=== PATIENT | female | born 1980 | race Two or more races ===

== ENCOUNTER 2016-11-29 23:07 | Inpatient (IN) | payer MEDICAID ==
[~2016-11-29] VITALS: Ht 165.1 cm; Wt 104.3 kg
--- NOTE | 2016-11-29 23:43 | Emergency Room Report ---
History of Present Illness General Chief Complaint: Abdominal Pain Source: Patient Present Illness HPI 37YOF walk-in with RUQ pain for 2 days No assoc nausea, vomiting, diarrhea Known cholelithiasis Had same issue at [facility] ER "a few months ago." Negative sono at that time Did not followup with GenSurg Denies precipitating spicy food 2 days ago No other surgical history Also states s Allergies: Coded Allergies: PENICILLINS (Verified Allergy, Unknown, 11/29/16) Patient History Past Medical History: other - cholelithaisis Past Surgical History: none Pertinent Family History: none Social History: Denies: alcohol use, drug use, smoking Last Menstrual Period: October 02, 2016 Now: Yes Immunizations: UTD Reviewed Nursing Documentation: PMH: Agreed, PSxH: Agreed Nursing Documentation-PMH Past Medical History: No History, Except For Review of Systems All Other Systems: negative except mentioned in HPI Physical Exam Vital Signs Date Time Temp Pulse Resp B/P Pulse Ox O2 Delivery O2 Flow Rate FiO2 11/29/16 23:12 98.4 93 16 118/84 99 Room Air Sp02 EP Interpretation: reviewed, normal General Appearance: normal inspection, well appearing, no apparent distress, alert, GCS 15, non-toxic, obese Head: normocephalic, atraumatic Eyes: bilateral eye EOMI, bilateral eye PERRL ENT: normal ENT inspection, hearing grossly normal, normal voice Neck: normal inspection, full range of motion, supple, no bony tend Respiratory: normal inspection, lungs clear, normal breath sounds, no respiratory distress, no retraction, no wheezing Cardiovascular #1: regular rate, rhythm, no edema Gastrointestinal: normal inspection, normal bowel sounds, soft, no guarding, no hernia, other - +RUQ ttp. No rebound, guarding or distention Genitourinary: no CVA tenderness Musculoskeletal: normal inspection, back normal, normal range of motion, Tristin' s Sign negative Neurologic: normal inspection, alert, oriented x3, responsive, pony roll finisher III-XII nml as tested, motor strength/tone normal, speech normal Psychiatric: normal inspection, judgement/insight normal, mood/affect normal Skin: normal inspection, normal color, no rash Medical Decision Making Diagnostic Impression: Primary Impression: Abdominal pain Qualified Codes: R10.11 - Right upper quadrant pain Additional Impressions: Qualified Codes: Z3A.08 - 8 weeks gestation of Cholecystitis ER Course Labs: Leuks 13K. LFTs normal. ABd sono: cholelithiasis with + murphys sign Empiric Abx given Urine preg + Attempted to admit to Dr Mazariegos - stated not comfortably with patient as an inpatient, requested transfer Transfer initiated to [facility] at 145am. Spoke with Daisy. Transfer desk called at 4am that multiple attempts to transfer patient to [facility] were met with resistance. Leila said "8 weeks is not viable. They can manage the cholecystitis at [facility]." Transfer desk then tried to endorse to OB, but on-call physician also stated "8 weeks not viable." Would not accept patient for transfer At this time I endorsed patient to Dr Fiore for med/surg admission here Lory consulted at 515am Last Vital Signs Date Time Temp Pulse Resp B/P Pulse Ox O2 Delivery O2 Flow Rate FiO2 11/29/16 23:12 98.4 93 16 118/84 99 Room Air Status: improved Disposition: ADMITTED INPATIENT Condition: Serious Referrals: NOT CHOSEN IPA/,REFERRING (PCP) ELIZABETH SALDIVAR M.D. Nov 29, 2016 23:43
[2016-11-29] MEDS ORDERED: Morphine Sulfate 2mg/ml Inj IVP ONE (23:45)
[2016-11-29] MEDS ORDERED: Morphine Sulfate 4mg/ml Inj IVP ONE (23:45)
[2016-11-29 23:50] LABS: APPEARANCE,URINE CLEAR; KETONES,URINE NEGATIVE (NEGATIVE); LEUKOCYTE ESTERASE ,URINE NEGATIVE (NEGATIVE); NITRITE,URINE NEGATIVE (NEGATIVE); PH,URINE 7 (4.5-8.0); PROTEIN,URINE 1+ (NEGATIVE); UROBILINOGEN,URINE 1 MG/DL (0.0-1.0)
[2016-11-29 23:54] LABS: BACTERIA,URINE FEW /HPF; RBC,URINE 0-2 /HPF (0 - 2); SQUAMOUS EPITHELIAL CELL,UR MODERATE /LPF (NONE/OCC); WBC,URINE 0-2 /HPF (0 - 2)
[2016-11-29 23:55] LABS: CALCIUM OXALATE CRYSTALS,UR MODERATE /LPF
[2016-11-30] VITALS (10 sets, daily range): BP systolic 90–117; BP diastolic 55–76
[2016-11-30] LABS: BASOPHILS % (AUTO) 0.9 % (0.0-2.0); EOSINOPHILS % (AUTO) 3.6 % (0.0-3.0); LYMPHOCYTES % (AUTO) 26.5 % (20.0-45.0); MEAN CORPUSCULAR HEMOGLOBIN 29.4 PG (27.0-31.0); MEAN CORPUSCULAR HGB CONC 34.2 G/DL (32.0-36.0); MEAN CORPUSCULAR VOLUME 86 FL (80-99); MEAN PLATELET VOLUME 7.7 FL (6.5-10.1); MONOCYTES % (AUTO) 5.7 % (1.0-10.0); NEUTROPHILS % (AUTO) 63.3 % (45.0-75.0); PLATELET COUNT 279 K/UL (150-450); RED BLOOD COUNT 4.93 M/UL (4.20-5.40); RED CELL DISTRIBUTION WIDTH 13.3 % (11.6-14.8); WHITE BLOOD COUNT 13.6 K/UL (4.8-10.8)
[2016-11-30 00:20] LABS: ALANINE AMINOTRANSFERASE 10 U/L (3-33); ALBUMIN/GLOBULIN RATIO 1.1 (1.0-2.7); ANION GAP 11 (5-15); ASPARTATE AMINO TRANSFERASE 12 U/L (5-40); CALCIUM 9.6 mg/dL (8.6-10.2); CARBON DIOXIDE 25 mEQ/L (20-30); CHLORIDE 102 mEQ/L (98-107); GLOMERULAR FILTRATION RATE > 60 mL/min (>60); HEMOLYSIS 9; LIPASE 42 U/L (< 60); POTASSIUM 3.8 mEQ/L (3.4-4.9); SODIUM 138 mEQ/L (135-145); TOTAL PROTEIN 7.5 g/dL (6.6-8.7)
[2016-11-30] MEDS ORDERED: Clindamycin 900mg 50 ML IVPB ONE (00:30)
[2016-11-30] MEDS ORDERED: NKM (01:13)
[2016-11-30] MEDS ORDERED: Morphine Sulfate 2mg/ml Inj IVP PRN (06:45)
[2016-11-30] MEDS ORDERED: Mylanta II UD 30ml ORAL PRN (06:45)
[2016-11-30] MEDS ORDERED: Nitroglycerin Subl 0.4mg tab (Bottle Of 25) SL PRN (06:45)
[2016-11-30] MEDS ORDERED: Miralax 17gm pkt ORAL PRN (06:45)
[2016-11-30] MEDS: Aztreonam Inj 1 GM in NS 50 ML IVPB SCH ×3 (08:15→22:23)
[2016-11-30] MEDS: Heparin 5000 units/ml inj SUBQ SCH ×3 (08:17→22:26)
[2016-11-30] MEDS: Pantoprazole Inj IVP SCH (08:20)
--- NOTE | 2016-11-30 10:09 | Diagnostic Imaging Report ---
Indication:Abdominal pain Technique: Grayscale and duplex Doppler imaging of the abdomen performed. Comparison: None Findings: There is dense shadowing from the area of the gallbladder fossa suspicious for stones within a contracted gallbladder. Would confirm that the patient still has her gallbladder as occasionally the finding is on the basis of air in the duodenum. In addition the patient was tender over this region as there is a positive sonographic Bruce's per technologist. The liver, demonstrated part of the pancreas, aorta and IVC, both kidneys, spleen appear unremarkable. There is no biliary ductal dilatation identified. Doppler evaluation of the main portal vein shows patency. There is no ascites. No hydronephrosis seen. CBD is 2.7 mm. Impression: Suspicion of cholelithiasis with positive sonographic Bruce's. Acute cholecystitis may be present. [facility] has communicated the preliminary results to the Emergency Department. Their findings are largely concordant with this report.
[2016-11-30] MEDS: D5 1/2NS 1,000 ML IV SCH ×2 (10:50→18:43)
--- NOTE | 2016-11-30 12:12 | Consultation ---
History of Present Illness General Chief Complaint: Abdominal Pain Reason for Consultation: RUQ abdominal pain Present Illness HPI 36 year old female with known history of symptomatic cholelithiasis presented to ED with complaints of worsening RUQ abdominal pain, nausea, and emesis. patient states that a few months ago she had similar event and went to outside facility for evaluation and was diagnosed with symptomatic cholelithiasis. episode resolved and she was scheduled to follow up with surgeon as outpatient but did not. she has had intermittent episodes since but all resolve within hours and without intervention. Now she is currently 8 weeks and presented with similar event. States that 1-2 days ago she began to note pain in her RUQ and pain persisted. pain associated with multiple non blood emesis and intermittent nausea. pain described as cramping RUQ pain made worse with palpation and better with rest. she decided to come to [facility] ED for evaluation and was admitted for management. Surgery called to evaluate. In ED had Ultrasound which demonstrated cholelithiasis, normal CBD, normal LFT's, and leukocytosis of 13k. Allergies: Coded Allergies: PENICILLINS (Verified Allergy, Unknown, 11/29/16) Medication History Scheduled No Known Medications* (NKM - No Known Medications*), 0 ., (Reported) Patient History History Provided By: Patient, Medical Record, EMS Healthcare decision maker Resuscitation status Full Code Advanced Directive on File Past Medical/Surgical History Past Medical/Surgical History: (1) Cholelithiasis (2) (3) Abdominal pain (4) Cholecystitis Review of Systems All Other Systems: negative except mentioned in HPI Physical Exam General Appearance: no apparent distress, alert Lines, tubes and drains: peripheral HEENT: mucous membranes moist, PERRL Neck: normal inspection Respiratory/Chest: lungs clear, normal breath sounds, no respiratory distress, no accessory muscle use Cardiovascular/Chest: normal peripheral pulses, normal rate, regular rhythm Abdomen: soft, no organomegaly, no mass, tender, other - soft, no distended, tender in RUQ, no rebound, no guarding, no RLQ pain Extremities: normal inspection Skin Exam: normal pigmentation Neurologic: alert, oriented x 3 Last 24 Hour Vital Signs Date Time Temp Pulse Resp B/P Pulse Ox O2 Delivery O2 Flow Rate FiO2 11/30/16 08:00 97.9 76 20 110/71 98 Room Air 11/30/16 05:31 97.7 73 20 100/64 100 Room Air 11/30/16 05:14 98.1 66 19 95/55 100 Room Air 11/30/16 04:39 98.1 66 19 95/55 100 Room Air 11/30/16 02:34 98.1 72 22 117/76 99 Room Air 11/30/16 01:35 98.8 11/30/16 00:43 98.8 77 12 105/55 99 Room Air 11/29/16 23:12 98.4 93 16 118/84 99 Room Air Laboratory Tests Test 11/29/16 23:20 11/29/16 23:40 Urine Color Pale yellow Urine Appearance Clear Urine pH 7 (4.5-8.0) Urine Specific [place] 1.015 (1.005-1.035) Urine Protein 1+ (NEGATIVE) H Urine Glucose (UA) Negative (NEGATIVE) Urine Ketones Negative (NEGATIVE) Urine Occult Blood 1+ (NEGATIVE) H Urine Nitrite Negative (NEGATIVE) Urine Bilirubin Negative (NEGATIVE) Urine Urobilinogen 1 MG/DL (0.0-1.0) H Urine Leukocyte Esterase Negative (NEGATIVE) Urine RBC 0-2 /HPF (0 - 2) Urine WBC 0-2 /HPF (0 - 2) Urine Squamous Epithelial Cells Moderate /LPF (NONE/OCC) H Urine Calcium Oxalate Crystals Moderate /LPF (NONE) Urine Bacteria Few /HPF (NONE) Urine HCG, Qualitative Positive White Blood Count 13.6 K/UL (4.8-10.8) H Red Blood Count 4.93 M/UL (4.20-5.40) Hemoglobin 14.5 G/DL (12.0-16.0) Hematocrit 42.4 % (37.0-47.0) Mean Corpuscular Volume 86 FL (80-99) Mean Corpuscular Hemoglobin 29.4 PG (27.0-31.0) Mean Corpuscular Hemoglobin Concent 34.2 G/DL (32.0-36.0) Red Cell Distribution Width 13.3 % (11.6-14.8) Platelet Count 279 K/UL (150-450) Mean Platelet Volume 7.7 FL (6.5-10.1) Neutrophils (%) (Auto) 63.3 % (45.0-75.0) Lymphocytes (%) (Auto) 26.5 % (20.0-45.0) Monocytes (%) (Auto) 5.7 % (1.0-10.0) Eosinophils (%) (Auto) 3.6 % (0.0-3.0) H Basophils (%) (Auto) 0.9 % (0.0-2.0) Sodium Level 138 mEQ/L (135-145) Potassium Level 3.8 mEQ/L (3.4-4.9) Chloride Level 102 mEQ/L (98-107) Carbon Dioxide Level 25 mEQ/L (20-30) Anion Gap 11 (5-15) Blood Urea Nitrogen 12 mg/dL (7-23) Creatinine 1.0 mg/dL (0.5-0.9) H Estimat Glomerular Filtration Rate > 60 mL/min (>60) Glucose Level 110 mg/dL (74-106) H Calcium Level 9.6 mg/dL (8.6-10.2) Total Bilirubin 0.3 mg/dL (0.0-1.2) Aspartate Amino Transf (AST/SGOT) 12 U/L (5-40) Alanine Aminotransferase (ALT/SGPT) 10 U/L (3-33) Alkaline Phosphatase 78 U/L (35-104) Total Protein 7.5 g/dL (6.6-8.7) Albumin 4.0 g/dL (3.5-5.2) Globulin 3.5 g/dL Albumin/Globulin Ratio 1.1 (1.0-2.7) Lipase 42 U/L (< 60) Height (Feet): 5 Height (Inches): 5.00 Weight (Pounds): 230 Medications Current Medications Medications (Trade) Dose Ordered Sig/[place] Route PRN Reason Start Time Stop Time Status Last Admin Dose Admin Acetaminophen 650 mg 650 mg Q4H PRN ORAL Mild Pain/Temp > 100.5 11/30/16 08:45 12/30/16 08:44 11/30/16 10:58 Al Hydroxide/Mg Hydroxide (Mylanta II) 30 ml Q6H PRN ORAL dyspepsia 11/30/16 06:45 12/30/16 06:44 Aztreonam/Sodium Chloride (Azactam/Sodium Chloride) 50 ml @ 100 mls/hr EVERY 8 HOURS IVPB 11/30/16 08:00 12/07/16 07:59 11/30/16 08:15 Dextrose (Dextrose 50%) STAT PRN IV Hypoglycemia 11/30/16 06:45 12/30/16 06:44 Dextrose/Sodium Chloride (D5 0.45% NS) 1,000 ml @ 125 mls/hr Q8H IV 11/30/16 10:30 12/30/16 10:29 11/30/16 10:50 Diphenhydramine HCl (Benadryl) 25 mg Q6H PRN ORAL Itching/Pruritis 11/30/16 06:45 12/30/16 06:44 Heparin Sodium (Porcine) (Heparin 5000 units/ml) 5,000 units EVERY 12 HOURS SUBQ 11/30/16 09:00 12/30/16 08:59 Morphine Sulfate (Morphine Sulfate) 2 mg Q4H PRN IVP severe Pain (Pain Scale 7-10) 11/30/16 06:45 12/07/16 06:44 Nitroglycerin (Ntg) 0.4 mg Q5M X 3 DOSES PRN SL Prn Chest Pain 11/30/16 06:45 12/30/16 06:44 Ondansetron HCl (Zofran) 4 mg Q6H PRN IVP Nausea & Vomiting 11/30/16 06:45 12/30/16 06:44 Pantoprazole 40 mg 40 mg DAILY IVP 11/30/16 09:00 12/30/16 08:59 Polyethylene Glycol (Miralax) 17 gm HSPRN PRN ORAL Constipation 11/30/16 06:45 12/30/16 06:44 Assessment/Plan Problem List: (1) Cholecystitis Assessment & Plan: 36F 8 weeks with episode of acute cholecystitis. currently afebrile, HD Stable, leukocytosis 13k, normal lft's, ultrasound with stones and contracted gb. on exam has RUQ tenderness when palpated and no tenderness in remainder of abdomen. Continue with medical management of acute cholecystitis NPO IV fluids IV Abx will monitor exam and trend labs. ICD Codes: K81.9 - Cholecystitis, unspecified SNOMED: 85830381, [id number] Status: stable Dominic Vargas Nov 30, 2016 12:12
--- NOTE | 2016-11-30 13:26 | GI Initial Consult Note ---
History of Present Illness General Date patient seen: Nov 30, 2016 Time patient seen: 10:00 Reason for Hospitalization: Abdominal Pain Referring physician: VIOLET MOORE Reason for Consultation: RUQ abdominal pain Present Illness HPI 37YOF walk-in with RUQ pain for 2 days No assoc nausea, vomiting, diarrhea Known cholelithiasis Had same issue at [facility] ER "a few months ago." Negative sono at that time Did not followup with GenSurg Denies precipitating spicy food 2 days ago No other surgical history. GI Consult. HPI as noted above. GI consulted for abdominal pain. Pt seen on floor, awake A&Ox4 NAD with no active s/x of N/V/D c/o of RUQ abdominal pain presents today with elevated WBC 13.6. Patient states she had one episode of emesis last night. Denied any hematemesis or coffee grounds. HGC +. Procedure: US ABD Complete Indication:Abdominal pain Impression: Suspicion of cholelithiasis with positive sonographic Bruce's. Acute cholecystitis may be present. Home Meds Reported Medications No Known Medications* (NKM - No Known Medications*) ., 0 ., 0 Refills 11/30/16 Allergies: Coded Allergies: PENICILLINS (Verified Allergy, Unknown, 11/29/16) Patient History History Provided By: Patient, Medical Record PMH Narrative Past Medical History: other - cholelithiasis Past Surgical History: none Pertinent Family History: none Social History: Denies: alcohol use, drug use, smoking Last Menstrual Period: October 02, 2016 Now: Yes Immunizations: UTD Reviewed Nursing Documentation: PMH: Agreed, PSxH: Agreed Nursing Documentation-PMH Past Medical History: No History, Except For Social History: Denies: alcohol use, drug use, other, smoking Review of Systems All Other Systems: negative except mentioned in HPI Physical Exam Vital Signs Date Time Temp Pulse Resp B/P Pulse Ox O2 Delivery O2 Flow Rate FiO2 11/29/16 23:12 98.4 93 16 118/84 99 Room Air Sp02 EP Interpretation: reviewed Labs Laboratory Tests Test 11/29/16 23:20 11/29/16 23:40 Urine Color Pale yellow Urine Appearance Clear Urine pH 7 (4.5-8.0) Urine Specific [place] 1.015 (1.005-1.035) Urine Protein 1+ (NEGATIVE) H Urine Glucose (UA) Negative (NEGATIVE) Urine Ketones Negative (NEGATIVE) Urine Occult Blood 1+ (NEGATIVE) H Urine Nitrite Negative (NEGATIVE) Urine Bilirubin Negative (NEGATIVE) Urine Urobilinogen 1 MG/DL (0.0-1.0) H Urine Leukocyte Esterase Negative (NEGATIVE) Urine RBC 0-2 /HPF (0 - 2) Urine WBC 0-2 /HPF (0 - 2) Urine Squamous Epithelial Cells Moderate /LPF (NONE/OCC) H Urine Calcium Oxalate Crystals Moderate /LPF (NONE) Urine Bacteria Few /HPF (NONE) Urine HCG, Qualitative Positive White Blood Count 13.6 K/UL (4.8-10.8) H Red Blood Count 4.93 M/UL (4.20-5.40) Hemoglobin 14.5 G/DL (12.0-16.0) Hematocrit 42.4 % (37.0-47.0) Mean Corpuscular Volume 86 FL (80-99) Mean Corpuscular Hemoglobin 29.4 PG (27.0-31.0) Mean Corpuscular Hemoglobin Concent 34.2 G/DL (32.0-36.0) Red Cell Distribution Width 13.3 % (11.6-14.8) Platelet Count 279 K/UL (150-450) Mean Platelet Volume 7.7 FL (6.5-10.1) Neutrophils (%) (Auto) 63.3 % (45.0-75.0) Lymphocytes (%) (Auto) 26.5 % (20.0-45.0) Monocytes (%) (Auto) 5.7 % (1.0-10.0) Eosinophils (%) (Auto) 3.6 % (0.0-3.0) H Basophils (%) (Auto) 0.9 % (0.0-2.0) Sodium Level 138 mEQ/L (135-145) Potassium Level 3.8 mEQ/L (3.4-4.9) Chloride Level 102 mEQ/L (98-107) Carbon Dioxide Level 25 mEQ/L (20-30) Anion Gap 11 (5-15) Blood Urea Nitrogen 12 mg/dL (7-23) Creatinine 1.0 mg/dL (0.5-0.9) H Estimat Glomerular Filtration Rate > 60 mL/min (>60) Glucose Level 110 mg/dL (74-106) H Calcium Level 9.6 mg/dL (8.6-10.2) Total Bilirubin 0.3 mg/dL (0.0-1.2) Aspartate Amino Transf (AST/SGOT) 12 U/L (5-40) Alanine Aminotransferase (ALT/SGPT) 10 U/L (3-33) Alkaline Phosphatase 78 U/L (35-104) Total Protein 7.5 g/dL (6.6-8.7) Albumin 4.0 g/dL (3.5-5.2) Globulin 3.5 g/dL Albumin/Globulin Ratio 1.1 (1.0-2.7) Lipase 42 U/L (< 60) General Appearance: well appearing, no apparent distress, alert Head: normocephalic EENT: normal ENT inspection Neck: supple Respiratory: chest non-tender, normal breath sounds, no respiratory distress Cardiovascular: normal peripheral pulses, normal rate, regular rhythm Gastrointestinal: normal inspection, non tender, soft, normal bowel sounds Rectal: normal exam, normal rectal tone, deferred Genitourinary: normal inspection Musculoskeletal: normal inspection, back normal, digits/nails normal Neurologic: normal inspection, alert, oriented x3, responsive Psychiatric: normal inspection, judgement/insight normal, memory normal Skin: normal inspection, normal color, no rash, warm/dry Lymphatic: normal inspection, no adenopathy Current Medications Current Medications Medications (Trade) Dose Ordered Sig/[place] Route PRN Reason Start Time Stop Time Status Last Admin Dose Admin Acetaminophen 650 mg 650 mg Q4H PRN ORAL Mild Pain/Temp > 100.5 11/30/16 08:45 12/30/16 08:44 11/30/16 10:58 Al Hydroxide/Mg Hydroxide (Mylanta II) 30 ml Q6H PRN ORAL dyspepsia 11/30/16 06:45 12/30/16 06:44 Aztreonam/Sodium Chloride (Azactam/Sodium Chloride) 50 ml @ 100 mls/hr EVERY 8 HOURS IVPB 11/30/16 08:00 12/07/16 07:59 11/30/16 08:15 Dextrose (Dextrose 50%) STAT PRN IV Hypoglycemia 11/30/16 06:45 12/30/16 06:44 Dextrose/Sodium Chloride (D5 0.45% NS) 1,000 ml @ 125 mls/hr Q8H IV 8/7/17 10:30 12/30/16 10:29 11/30/16 10:50 Diphenhydramine HCl (Benadryl) 25 mg Q6H PRN ORAL Itching/Pruritis 11/30/16 06:45 12/30/16 06:44 Heparin Sodium (Porcine) (Heparin 5000 units/ml) 5,000 units EVERY 12 HOURS SUBQ 11/30/16 09:00 12/30/16 08:59 Morphine Sulfate (Morphine Sulfate) 2 mg Q4H PRN IVP severe Pain (Pain Scale 7-10) 11/30/16 06:45 12/07/16 06:44 Nitroglycerin (Ntg) 0.4 mg Q5M X 3 DOSES PRN SL Prn Chest Pain 11/30/16 06:45 12/30/16 06:44 Ondansetron HCl (Zofran) 4 mg Q6H PRN IVP Nausea & Vomiting 11/30/16 06:45 12/30/16 06:44 Pantoprazole 40 mg 40 mg DAILY IVP 11/30/16 09:00 12/30/16 08:59 Polyethylene Glycol (Miralax) 17 gm HSPRN PRN ORAL Constipation 11/30/16 06:45 12/30/16 06:44 GI: Plan Problems: (1) Cholecystitis (2) Cholelithiasis (3) Abdominal pain (4) Plan abdominal U/S reviewed >> Suspicion of cholelithiasis with positive sonographic Bruce's. Acute cholecystitis may be present. HGC positive surgical recs >> Continue with medical management of acute cholecystitis NPO + IV fluids IV Abx zofran prn pain mgmt ppi fu labs Discussed with Dr. Knott. Thank you for referring this patient, we will follow. Tracy Whipple N.P. Nov 30, 2016 13:26
--- NOTE | 2016-11-30 16:36 | General Progress Note ---
Progress Note Progress Note Surgery: afternoon re-evaluation: patient states pain improving. slowly decreasing. nausea improving. no emesis. states she feels better. ambulatory. good urine output. +flatus. no BM. exam with less RUQ tenderness. will continue with conservative management of cholecystitis. NPO, IV fluids, IV Abx. Dominic Vargas Nov 30, 2016 16:35
--- NOTE | 2016-11-30 17:11 | History and Physical ---
History of Present Illness General Date patient seen: Nov 30, 2016 Reason for Hospitalization: Abdominal Pain Present Illness HPI 37 year old female with Known cholelithiasis walk-in to ER with RUQ pain for 2 days. she was diagnosed to have cholecystitis. She was found to be as well. ER physician attempted to transfer her to a hospital with an active MARIE department. He was told that she wouldn't need that. The ER panel physician refused to take her as well. I was asked by ER physician to admit her. Allergies: Coded Allergies: PENICILLINS (Verified Allergy, Unknown, 11/29/16) Medication History Scheduled No Known Medications* (NKM - No Known Medications*), 0 ., (Reported) Patient History Healthcare decision maker Resuscitation status Full Code Advanced Directive on File Past Medical/Surgical History Past Medical/Surgical History: (1) Cholecystitis (2) Cholelithiasis Review of Systems All Other Systems: negative except mentioned in HPI Physical Exam General Appearance: WD/WN Lines, tubes and drains: peripheral, central line HEENT: normocephalic, atraumatic Neck: non-tender, normal alignment, limited range of motion Respiratory/Chest: lungs clear Breasts: no masses Cardiovascular/Chest: normal peripheral pulses, normal rate, no JVD Genitourinary/Rectal: normal genital exam Extremities: normal range of motion Last 24 Hour Vital Signs Date Time Temp Pulse Resp B/P Pulse Ox O2 Delivery O2 Flow Rate FiO2 11/30/16 16:00 97.7 67 20 112/74 98 Room Air 11/30/16 14:39 70 90/55 11/30/16 12:00 97.5 70 20 98/65 98 Room Air 11/30/16 11:57 97.9 11/30/16 08:00 97.9 76 20 110/71 98 Room Air 11/30/16 05:31 97.7 73 20 100/64 100 Room Air 11/30/16 05:14 98.1 66 19 95/55 100 Room Air 11/30/16 04:39 98.1 66 19 95/55 100 Room Air 11/30/16 02:34 98.1 72 22 117/76 99 Room Air 11/30/16 01:35 98.8 11/30/16 00:43 98.8 77 12 105/55 99 Room Air 11/29/16 23:12 98.4 93 16 118/84 99 Room Air Laboratory Tests Test 11/29/16 23:20 11/29/16 23:40 Urine Color Pale yellow Urine Appearance Clear Urine pH 7 (4.5-8.0) Urine Specific [place] 1.015 (1.005-1.035) Urine Protein 1+ (NEGATIVE) H Urine Glucose (UA) Negative (NEGATIVE) Urine Ketones Negative (NEGATIVE) Urine Occult Blood 1+ (NEGATIVE) H Urine Nitrite Negative (NEGATIVE) Urine Bilirubin Negative (NEGATIVE) Urine Urobilinogen 1 MG/DL (0.0-1.0) H Urine Leukocyte Esterase Negative (NEGATIVE) Urine RBC 0-2 /HPF (0 - 2) Urine WBC 0-2 /HPF (0 - 2) Urine Squamous Epithelial Cells Moderate /LPF (NONE/OCC) H Urine Calcium Oxalate Crystals Moderate /LPF (NONE) Urine Bacteria Few /HPF (NONE) Urine HCG, Qualitative Positive White Blood Count 13.6 K/UL (4.8-10.8) H Red Blood Count 4.93 M/UL (4.20-5.40) Hemoglobin 14.5 G/DL (12.0-16.0) Hematocrit 42.4 % (37.0-47.0) Mean Corpuscular Volume 86 FL (80-99) Mean Corpuscular Hemoglobin 29.4 PG (27.0-31.0) Mean Corpuscular Hemoglobin Concent 34.2 G/DL (32.0-36.0) Red Cell Distribution Width 13.3 % (11.6-14.8) Platelet Count 279 K/UL (150-450) Mean Platelet Volume 7.7 FL (6.5-10.1) Neutrophils (%) (Auto) 63.3 % (45.0-75.0) Lymphocytes (%) (Auto) 26.5 % (20.0-45.0) Monocytes (%) (Auto) 5.7 % (1.0-10.0) Eosinophils (%) (Auto) 3.6 % (0.0-3.0) H Basophils (%) (Auto) 0.9 % (0.0-2.0) Sodium Level 138 mEQ/L (135-145) Potassium Level 3.8 mEQ/L (3.4-4.9) Chloride Level 102 mEQ/L (98-107) Carbon Dioxide Level 25 mEQ/L (20-30) Anion Gap 11 (5-15) Blood Urea Nitrogen 12 mg/dL (7-23) Creatinine 1.0 mg/dL (0.5-0.9) H Estimat Glomerular Filtration Rate > 60 mL/min (>60) Glucose Level 110 mg/dL (74-106) H Calcium Level 9.6 mg/dL (8.6-10.2) Total Bilirubin 0.3 mg/dL (0.0-1.2) Aspartate Amino Transf (AST/SGOT) 12 U/L (5-40) Alanine Aminotransferase (ALT/SGPT) 10 U/L (3-33) Alkaline Phosphatase 78 U/L (35-104) Total Protein 7.5 g/dL (6.6-8.7) Albumin 4.0 g/dL (3.5-5.2) Globulin 3.5 g/dL Albumin/Globulin Ratio 1.1 (1.0-2.7) Lipase 42 U/L (< 60) Height (Feet): 5 Height (Inches): 5.00 Weight (Pounds): 230 Medications Current Medications Medications (Trade) Dose Ordered Sig/[place] Route PRN Reason Start Time Stop Time Status Last Admin Dose Admin Acetaminophen 650 mg 650 mg Q4H PRN ORAL Mild Pain/Temp > 100.5 11/30/16 08:45 12/30/16 08:44 11/30/16 10:58 Al Hydroxide/Mg Hydroxide (Mylanta II) 30 ml Q6H PRN ORAL dyspepsia 11/30/16 06:45 12/30/16 06:44 Aztreonam/Sodium Chloride (Azactam/Sodium Chloride) 50 ml @ 100 mls/hr EVERY 8 HOURS IVPB 11/30/16 08:00 12/07/16 07:59 11/30/16 15:33 Dextrose (Dextrose 50%) STAT PRN IV Hypoglycemia 11/30/16 06:45 12/30/16 06:44 Dextrose/Sodium Chloride (D5 0.45% NS) 1,000 ml @ 125 mls/hr Q8H IV 11/30/16 10:30 12/30/16 10:29 11/30/16 10:50 Diphenhydramine HCl (Benadryl) 25 mg Q6H PRN ORAL Itching/Pruritis 11/30/16 06:45 12/30/16 06:44 Heparin Sodium (Porcine) (Heparin 5000 units/ml) 5,000 units EVERY 12 HOURS SUBQ 11/30/16 09:00 12/30/16 08:59 Morphine Sulfate (Morphine Sulfate) 2 mg Q4H PRN IVP severe Pain (Pain Scale 7-10) 11/30/16 06:45 12/07/16 06:44 Nitroglycerin (Ntg) 0.4 mg Q5M X 3 DOSES PRN SL Prn Chest Pain 11/30/16 06:45 12/30/16 06:44 Ondansetron HCl (Zofran) 4 mg Q6H PRN IVP Nausea & Vomiting 11/30/16 06:45 12/30/16 06:44 Pantoprazole 40 mg 40 mg DAILY IVP 11/30/16 09:00 12/30/16 08:59 Polyethylene Glycol (Miralax) 17 gm HSPRN PRN ORAL Constipation 11/30/16 06:45 12/30/16 06:44 Assessment/Plan Problem List: (1) Cholecystitis ICD Codes: K81.9 - Cholecystitis, unspecified SNOMED: 25867729, [id number] (2) ICD Codes: Z34.90 - Encounter for supervision of normal , unspecified , unspecified trimester SNOMED: 31079142 Qualifiers: Qualified Codes: Z3A.08 - 8 weeks gestation of (3) Penicillin allergy ICD Codes: Z88.0 - Allergy status to penicillin SNOMED: 04213626 Assessment/Plan NPO IV antibiotics Surgery and GENERATION TECHNOLOGIST evaluation PCN allergy VIOLET MOORE Nov 30, 2016 17:11
[2016-11-30] MEDS ORDERED: D5 1/2NS 1,000 ML IV SCH (17:40)
--- NOTE | 2016-11-30 17:53 | Infectious Diseases Prog Note ---
Infectious Disease Consult Infectious Disease Consult Infectious Disease Consult INFECTIOUS DISEASE CONSULTATION DATE OF CONSULTATION: CONSULTING PHYSICIAN: Jesus Lopez M.D., MTM&H, [facility] Covering for Dr. Best REFERRING PHYSICIAN: Dr. Juma Fiore REASON FOR CONSULTATION: Acute cholecystitis in , with h/o PCN allergy HISTORY OF PRESENT ILLNESS: 36 y/o female in 1st trimester of (LMP [id number]), h/o cholelithiasis admitted with acute cholecystitis. c/o RUQ pain x2 days, w/o nausea, emesis, eructation, diarrhea, dark stools, coffee grounds. evaluated at [facility] ER earlier this year with similar complaints , but reportedly had negative u/s at that time. She did not f/u with gen surg since that ER evaluation. no other surgical history. Ate spicy food prior to onset. denies any recent travel. denies any recent abx use. She reports remote h/o facial edema w/o respiratory compromise to PCN, and she can't recall receiving any cephalosporins or augmentin. She is in the first trimester of . This afternoon her pain is decreased, minimal nausea, no emesis, is ambulatory, good urine outpatient, + flatus, no BM. She is receiving IV fluids , is NPO, and given her PCN allergy was started on empiric IV aztreonam. PAST MEDICAL HISTORY: , prior h/o cholecystitis about 2 months ago, cholelithiasis Past Surgical History: none ALLERGIES: PCN-->facial edema w/o respiratory compromise. patient cannot recall previously having received cephalosporins or augmentin ANTIBIOTICS: Aztreonam IV 1gm q8hr, D#1 Home and hospitalized medications reviewed. SOCIAL HISTORY: , denies current etoh, is a non smoker, denies illicit drug use FAMILY HISTORY: Noncontributory REVIEW OF SYSTEMS: 11 point ROS negative except for that mentioned in HPI above. PHYSICAL EXAM: VITAL SIGNS: reviewed. afebrile, not hypotensive, not tachycardic. GEN: awake, alert, non toxic appearing HEENT: Mild pale conjunctiva. oral mucosa dry, pharynx w/o exudate or effusion. No icterus. Head normocephalic, neck supple. no conjunctival injection. NECK: No cervical LAD CHEST: Clear to auscultation bilaterally, poor inspiratory HEART: S1 and S2, no murmurs, no rubs. ABDOMEN: soft, non tender, non distended, normoactive bowel sounds, obese, uterine fundus palpated. minimal RUQ pain to palpation. no robound, no guarding. EXTREMITIES: No cyanosis, no clubbing, no edema. NEUROLOGIC: Awake, alert, no focal neurologic motor deficits. : deferred LYMPH: no LAD RECTAL: deferred SKIN: no rash LABORATORY AND DIAGNOSTIC DATA: WBC 13.6, hgb 14.5, plt 279, N 63%, eos 3.6%, AEC 490 Na 138, K 3.8, Cl 102, CO2 25, BUN 12, SCr 1.0, gluc 110 Ca 9.6, prot 7.5, alb 4.0, tili 0.3, alk phos 78, AST 12, ALT 10, lipase normal at 42 u/a 1.015/1+ protein/1+ blood/neg ketone/neg LE/0 WBC/0/ RBC/moderate epis HCG + RADIOLOGY: Patient : ALYSIA TALBOT Referring Physician: ELIZABETH SALDIVAR M.D. ID Number: [id number] Service Date: 11/29/16 : 1980 Report Date: 11/30/16 Gender: F Accession No.: [id number] Location: Procedure: US ABD Complete Indication:Abdominal pain Technique: Grayscale and duplex Doppler imaging of the abdomen performed. Comparison: None Findings: There is dense shadowing from the area of the gallbladder fossa suspicious for stones within a contracted gallbladder. Would confirm that the patient still has her gallbladder as occasionally the finding is on the basis of air in the duodenum. In addition the patient was tender over this region as there is a positive sonographic Bruce's per technologist. The liver, demonstrated part of the pancreas, aorta and IVC, both kidneys, spleen appear unremarkable. There is no biliary ductal dilatation identified. Doppler evaluation of the main portal vein shows patency. There is no ascites. No hydronephrosis seen. CBD is 2.7 mm. Impression: Suspicion of cholelithiasis with positive sonographic Bruce's. Acute cholecystitis may be present. [facility] has communicated the preliminary results to the Emergency Department. Their findings are largely concordant with this report. ASSESSMENT AND PLAN 36 y/o female, 1st trimester gravid, with acute cholecystitis that seems to be responding to medical mgmt with NPO, IV fluids, and empiric IV aztreonam. Her imaging is consistent with underlying cholelithiasis. Most common bacterial causes of cholecystitis include the aerobic GNRs E coli, Klebsiella, Proteus, and less likely the aerobic GPC Enterococcus. Also could include anaerobes to include Bacteroides, which specifically is unlikely to be covered by clindamycin. While flagyl is not absolutely contraindicated in 1st trimester for severe infections, she seems to be responding to current mgmt so unless she has worsening of her clinical picture, I think we can continue present mgmt. ASSESSMENT: 1) Acute cholecystitis in 2) Leukocytosis w/o left shift 3) Afebrile 4) Hemodynamically stable 5) PCN allergy PLAN: --continue IV aztreonam 1gm q8hr D#1 --if exam worsens, develops fevers, or leukocytosis worsens, would add on IV flagyl. --monitor CBC --monitor temp curve --monitor exam -- screening infection tests: HIV, urine GC/chlamydia NAAT, HBV and HCV screening, urine culture. remainder can be performed in non acute setting. --NPO Thank you for this consultation. Will continue to follow. Covering for Dr. Best, please call me with questions, Jesus Lopez M.D. Nov 30, 2016 17:53
[2016-12-01] MEDS: D5 1/2NS 1,000 ML IV SCH ×2 (02:22→11:45)
[2016-12-01 03:53] VITALS: BP 111/64
[2016-12-01] MEDS: Aztreonam Inj 1 GM in NS 50 ML IVPB SCH ×2 (05:20→14:46)
[2016-12-01 08:00] VITALS: BP 116/69
[2016-12-01] MEDS: Heparin 5000 units/ml inj SUBQ SCH (08:47)
[2016-12-01] MEDS: Pantoprazole Inj IVP SCH (08:47)
[2016-12-01 09:39] LABS: EOSINOPHILS % (AUTO) 4.5 % (0.0-3.0); MEAN CORPUSCULAR HEMOGLOBIN 29.1 PG (27.0-31.0); MEAN CORPUSCULAR HGB CONC 33.3 G/DL (32.0-36.0); MEAN CORPUSCULAR VOLUME 87 FL (80-99); MEAN PLATELET VOLUME 7.7 FL (6.5-10.1); NEUTROPHILS % (AUTO) 61.6 % (45.0-75.0); PLATELET COUNT 267 K/UL (150-450); RED BLOOD COUNT 4.52 M/UL (4.20-5.40); RED CELL DISTRIBUTION WIDTH 13.3 % (11.6-14.8); WHITE BLOOD COUNT 11.2 K/UL (4.8-10.8)
[2016-12-01 10:13] LABS: ALANINE AMINOTRANSFERASE 8 U/L (3-33); AMYLASE 59 U/L (10-110); ANION GAP 11 (5-15); ASPARTATE AMINO TRANSFERASE 11 U/L (5-40); CALCIUM 8.5 mg/dL (8.6-10.2); CARBON DIOXIDE 21 mEQ/L (20-30); CHLORIDE 105 mEQ/L (98-107); CREATININE 0.7 mg/dL (0.5-0.9); GLOMERULAR FILTRATION RATE > 60 mL/min (>60); HEMOLYSIS 1; LIPASE 41 U/L (< 60); POTASSIUM 4.1 mEQ/L (3.4-4.9); SODIUM 137 mEQ/L (135-145); TOTAL PROTEIN 6.8 g/dL (6.6-8.7)
[2016-12-01 12:00] VITALS: BP 117/72
--- NOTE | 2016-12-01 13:55 | General Surgery Progress Note ---
General Surgery-Progress Note Subjective Symptoms: improved, pain absent, tolerating diet, passing flatus, BM Additional Comments patient seen and examined at bedside. states pain has resolved. no n/v/f/c. tolerating diet. +flatus and BM. no complaints. states she wants to go home. Objective Last 24 Hour Vital Signs Date Time Temp Pulse Resp B/P Pulse Ox O2 Delivery O2 Flow Rate FiO2 12/01/16 12:00 98.2 69 20 117/72 95 Room Air 12/01/16 08:00 97.7 69 20 116/69 96 Room Air 12/01/16 03:53 98.6 80 18 111/64 95 Room Air 11/30/16 23:33 98.2 72 16 113/73 94 Room Air 11/30/16 21:00 97.9 71 19 109/65 100 Room Air 11/30/16 16:00 97.7 67 20 112/74 98 Room Air 11/30/16 14:39 70 90/55 I&O Intake and Output 11/30/16 12/01/16 19:00 07:00 Intake Total 1250 ml Balance 1250 ml Intake IV Total 1250 ml # Voids 4 3 Cardiovascular: RSR Respiratory: clear Abdomen: soft, non-tender, present bowel sounds Extremities: no tenderness Laboratory Tests Test 11/30/16 22:30 12/01/16 09:25 Chlamydia trachomatis RNA Pending White Blood Count 11.2 K/UL (4.8-10.8) H Red Blood Count 4.52 M/UL (4.20-5.40) Hemoglobin 13.1 G/DL (12.0-16.0) Hematocrit 39.4 % (37.0-47.0) Mean Corpuscular Volume 87 FL (80-99) Mean Corpuscular Hemoglobin 29.1 PG (27.0-31.0) Mean Corpuscular Hemoglobin Concent 33.3 G/DL (32.0-36.0) Red Cell Distribution Width 13.3 % (11.6-14.8) Platelet Count 267 K/UL (150-450) Mean Platelet Volume 7.7 FL (6.5-10.1) Neutrophils (%) (Auto) 61.6 % (45.0-75.0) Lymphocytes (%) (Auto) 28.0 % (20.0-45.0) Monocytes (%) (Auto) 5.0 % (1.0-10.0) Eosinophils (%) (Auto) 4.5 % (0.0-3.0) H Basophils (%) (Auto) 1.0 % (0.0-2.0) Activated Partial Thromboplast Time 29 SEC (23-33) Sodium Level 137 mEQ/L (135-145) Potassium Level 4.1 mEQ/L (3.4-4.9) Chloride Level 105 mEQ/L (98-107) Carbon Dioxide Level 21 mEQ/L (20-30) Anion Gap 11 (5-15) Blood Urea Nitrogen 8 mg/dL (7-23) Creatinine 0.7 mg/dL (0.5-0.9) Estimat Glomerular Filtration Rate > 60 mL/min (>60) Glucose Level 94 mg/dL (74-106) Calcium Level 8.5 mg/dL (8.6-10.2) L Total Bilirubin 0.4 mg/dL (0.0-1.2) Aspartate Amino Transf (AST/SGOT) 11 U/L (5-40) Alanine Aminotransferase (ALT/SGPT) 8 U/L (3-33) Alkaline Phosphatase 73 U/L (35-104) Total Protein 6.8 g/dL (6.6-8.7) Albumin 3.5 g/dL (3.5-5.2) Globulin 3.3 g/dL Albumin/Globulin Ratio 1.0 (1.0-2.7) Amylase Level 59 U/L (10-110) Lipase 41 U/L (< 60) Plan Problems: (1) Cholecystitis Assessment & Plan: 36F 8 weeks with episode of acute cholecystitis vs biliary colic. currently afebrile, HD Stable, leukocytosis 11k (trending down) , normal lft's, ultrasound with stones and contracted gb. Initially with RUQ tenderness which has since resolved. no n/v/f/c. Exam benign. tolerating diet. Diet as tolerated Ambulate and OOB patient states that she wants to go home today and given quick resolution of symptoms I believe would be safe. I explained to patient that there is a high risk that she can have another episode during and that if she has pain again she needs to seek medical attention. Needs to consider cholecystectomy during surgery if has episode of acute cholecystitis. This episode is more of a biliary colic given course. Patient states she will follow up with her WATER CONSERVATIONIST soon after discharge for evaluation and pre care. Given inflammatory process more than infectious, no further need for Abx. Can follow up with me as an outpatient. Dominic Vargas Dec 01, 2016 13:55
--- NOTE | 2016-12-01 13:56 | General Surgery Progress Note ---
General Surgery-Progress Note Subjective Symptoms: improved, pain absent, tolerating diet, passing flatus, BM Additional Comments patient seen and examined at bedside. doing well. pain resolved. tolerating diet. ambulatory. no complaints. wants to go home today . Objective Last 24 Hour Vital Signs Date Time Temp Pulse Resp B/P Pulse Ox O2 Delivery O2 Flow Rate FiO2 12/01/16 12:00 98.2 69 20 117/72 95 Room Air 12/01/16 08:00 97.7 69 20 116/69 96 Room Air 12/01/16 03:53 98.6 80 18 111/64 95 Room Air 11/30/16 23:33 98.2 72 16 113/73 94 Room Air 11/30/16 21:00 97.9 71 19 109/65 100 Room Air 11/30/16 16:00 97.7 67 20 112/74 98 Room Air 11/30/16 14:39 70 90/55 I&O Intake and Output 11/30/16 12/01/16 19:00 07:00 Intake Total 1250 ml Balance 1250 ml Intake IV Total 1250 ml # Voids 4 3 Cardiovascular: RSR Respiratory: clear Abdomen: soft, non-tender, present bowel sounds Extremities: no tenderness Laboratory Tests Test 11/30/16 22:30 12/01/16 09:25 Chlamydia trachomatis RNA Pending White Blood Count 11.2 K/UL (4.8-10.8) H Red Blood Count 4.52 M/UL (4.20-5.40) Hemoglobin 13.1 G/DL (12.0-16.0) Hematocrit 39.4 % (37.0-47.0) Mean Corpuscular Volume 87 FL (80-99) Mean Corpuscular Hemoglobin 29.1 PG (27.0-31.0) Mean Corpuscular Hemoglobin Concent 33.3 G/DL (32.0-36.0) Red Cell Distribution Width 13.3 % (11.6-14.8) Platelet Count 267 K/UL (150-450) Mean Platelet Volume 7.7 FL (6.5-10.1) Neutrophils (%) (Auto) 61.6 % (45.0-75.0) Lymphocytes (%) (Auto) 28.0 % (20.0-45.0) Monocytes (%) (Auto) 5.0 % (1.0-10.0) Eosinophils (%) (Auto) 4.5 % (0.0-3.0) H Basophils (%) (Auto) 1.0 % (0.0-2.0) Activated Partial Thromboplast Time 29 SEC (23-33) Sodium Level 137 mEQ/L (135-145) Potassium Level 4.1 mEQ/L (3.4-4.9) Chloride Level 105 mEQ/L (98-107) Carbon Dioxide Level 21 mEQ/L (20-30) Anion Gap 11 (5-15) Blood Urea Nitrogen 8 mg/dL (7-23) Creatinine 0.7 mg/dL (0.5-0.9) Estimat Glomerular Filtration Rate > 60 mL/min (>60) Glucose Level 94 mg/dL (74-106) Calcium Level 8.5 mg/dL (8.6-10.2) L Total Bilirubin 0.4 mg/dL (0.0-1.2) Aspartate Amino Transf (AST/SGOT) 11 U/L (5-40) Alanine Aminotransferase (ALT/SGPT) 8 U/L (3-33) Alkaline Phosphatase 73 U/L (35-104) Total Protein 6.8 g/dL (6.6-8.7) Albumin 3.5 g/dL (3.5-5.2) Globulin 3.3 g/dL Albumin/Globulin Ratio 1.0 (1.0-2.7) Amylase Level 59 U/L (10-110) Lipase 41 U/L (< 60) Plan Problems: (1) Cholecystitis Assessment & Plan: 36F 8 weeks with episode of acute cholecystitis vs biliary colic. currently afebrile, HD Stable, leukocytosis 11k (trending down) , normal lft's, ultrasound with stones and contracted gb. Initially with RUQ tenderness which has since resolved. no n/v/f/c. Exam benign. tolerating diet. Diet as tolerated Ambulate and OOB patient states that she wants to go home today and given quick resolution of symptoms I believe would be safe. I explained to patient that there is a high risk that she can have another episode during and that if she has pain again she needs to seek medical attention. Needs to consider cholecystectomy during surgery if has episode of acute cholecystitis. This episode is more of a biliary colic given course. Patient states she will follow up with her [employer] ATTENDANT soon after discharge for evaluation and pre anaid care. Given inflammatory process more than infectious, no further need for Abx. Can follow up with me as an outpatient. Dominic Vargas Dec 01, 2016 13:56
--- NOTE | 2016-12-01 14:13 | Pulmonology Progress Note ---
Assessment/Plan Assessment/Plan ASSESSMENT abdominal pain RUQ possible acute cholecystitis in likely biliary colic cholelithiasis PLAN OF CARE MS floor abdominal US +Suspicion of cholelithiasis with positive sonographic Bruce's. Acute cholecystitis may be present. GI, ID and surgery follow as per surgery defer surgical procedures at this time, continue with medical management of acute cholecystitis GI cleared fro dc diet advanced, tolerated a/emetic prn pain mgmt initially on IV abx routine screen - negative for HIV, syphilis, Chlamydia and viral hepatitis ID followed no need for abx as per ID ID cleared for dc surgery followed per surgery given short time of resolution of symptoms, likely biliary colic patient was counseled if symptoms recur, seek medical attention patient follows with [facility] for care Per surgery , given inflammatory process more than infectious, no further need for abx. Subjective Allergies: Coded Allergies: PENICILLINS (Verified Allergy, Unknown, 11/29/16) Subjective abdominal pain subsided leukocytosis trending down afebrile tolerated diet wanted to go home Objective Last 24 Hour Vital Signs Date Time Temp Pulse Resp B/P Pulse Ox O2 Delivery O2 Flow Rate FiO2 12/01/16 12:00 98.2 69 20 117/72 95 Room Air 12/01/16 08:00 97.7 69 20 116/69 96 Room Air 12/01/16 03:53 98.6 80 18 111/64 95 Room Air 11/30/16 23:33 98.2 72 16 113/73 94 Room Air 11/30/16 21:00 97.9 71 19 109/65 100 Room Air 11/30/16 16:00 97.7 67 20 112/74 98 Room Air 11/30/16 14:39 70 90/55 Intake and Output 11/30/16 12/01/16 19:00 07:00 Intake Total 1250 ml Balance 1250 ml Intake IV Total 1250 ml # Voids 4 3 General Appearance: other - A/A/O x 4 obese [place] speaking female in NAD HEENT: normocephalic, atraumatic, anicteric, mucous membranes moist Respiratory/Chest: chest wall non-tender, lungs clear, normal breath sounds, no respiratory distress, no accessory muscle use Cardiovascular: normal peripheral pulses, normal rate, regular rhythm Abdomen: normal bowel sounds, soft, non tender - Genitourinary: normal external genitalia Extremities: no edema, pedal pulses normal Skin: no rash Neurologic/Psychiatric: therapist radiation II-XII grossly normal, no motor/sensory deficits, oriented x 3, responsive Lymphatic: no neck adenopathy Musculoskeletal: normal muscle bulk Laboratory Tests 11/30/16 22:30: Chlamydia trachomatis RNA [Pending] 12/01/16 09:25: White Blood Count 11.2H, Red Blood Count 4.52, Hemoglobin 13.1, Hematocrit 39.4 , Mean Corpuscular Volume 87, Mean Corpuscular Hemoglobin 29.1, Mean Corpuscular Hemoglobin Concent 33.3, Red Cell Distribution Width 13.3, Platelet Count 267, Mean Platelet Volume 7.7, Neutrophils (%) (Auto) 61.6, Lymphocytes (% ) (Auto) 28.0, Monocytes (%) (Auto) 5.0, Eosinophils (%) (Auto) 4.5H, Basophils (%) (Auto) 1.0, Activated Partial Thromboplast Time 29, Sodium Level 137, Potassium Level 4.1, Chloride Level 105, Carbon Dioxide Level 21, Anion Gap 11, Blood Urea Nitrogen 8, Creatinine 0.7, Estimat Glomerular Filtration Rate > 60, Glucose Level 94, Calcium Level 8.5L, Total Bilirubin 0.4, Aspartate Amino Transf (AST/SGOT) 11, Alanine Aminotransferase (ALT/SGPT) 8, Alkaline Phosphatase 73, Total Protein 6.8, Albumin 3.5, Globulin 3.3, Albumin/Globulin Ratio 1.0, Amylase Level 59, Lipase 41 Current Medications Medications (Trade) Dose Ordered Sig/Indio Route PRN Reason Start Time Stop Time Status Last Admin Dose Admin Acetaminophen 650 mg 650 mg Q4H PRN ORAL Mild Pain/Temp > 100.5 11/30/16 08:45 12/30/16 08:44 11/30/16 10:58 Al Hydroxide/Mg Hydroxide (Mylanta II) 30 ml Q6H PRN ORAL dyspepsia 11/30/16 06:45 12/30/16 06:44 Aztreonam/Sodium Chloride (Azactam/Sodium Chloride) 50 ml @ 100 mls/hr EVERY 8 HOURS IVPB 11/30/16 08:00 12/07/16 07:59 12/01/16 05:20 Dextrose (Dextrose 50%) STAT PRN IV Hypoglycemia 11/30/16 06:45 12/30/16 06:44 Dextrose/Sodium Chloride (D5 0.45% NS) 1,000 ml @ 125 mls/hr Q8H IV 11/30/16 10:30 12/30/16 10:29 12/01/16 11:45 Diphenhydramine HCl (Benadryl) 25 mg Q6H PRN ORAL Itching/Pruritis 11/30/16 06:45 12/30/16 06:44 Heparin Sodium (Porcine) (Heparin 5000 units/ml) 5,000 units EVERY 12 HOURS SUBQ 11/30/16 09:00 12/30/16 08:59 Morphine Sulfate (Morphine Sulfate) 2 mg Q4H PRN IVP severe Pain (Pain Scale 7-10) 11/30/16 06:45 12/07/16 06:44 Nitroglycerin (Ntg) 0.4 mg Q5M X 3 DOSES PRN SL Prn Chest Pain 11/30/16 06:45 12/30/16 06:44 Ondansetron HCl (Zofran) 4 mg Q6H PRN IVP Nausea & Vomiting 11/30/16 06:45 12/30/16 06:44 11/30/16 22:39 Pantoprazole 40 mg 40 mg DAILY IVP 11/30/16 09:00 12/30/16 08:59 Polyethylene Glycol (Miralax) 17 gm HSPRN PRN ORAL Constipation 11/30/16 06:45 12/30/16 06:44 Alma Gibbs NP (Vanchtein) Dec 01, 2016 14:13
[2016-12-01] MEDS ORDERED: REGLAN5 MG ORAL (14:51)
--- NOTE | 2016-12-01 15:03 | Infectious Diseases Prog Note ---
Assessment/Plan Assessment/Plan 36 y/o female, 1st trimester gravid, with mild acute cholecystitis that has resolved medical mgmt including 48 hrs empiric IV aztreonam. Not systemically ill, does not have ascending cholangitis. screening for HIV/hepatitis/rpr is all negative. Her reported PCN allergy described as mild facial edema w/o anaphylaxis and w/o respiratory compromise. Don't have viable oral non beta lactam abx option for her, since clindamycin doesn't cover aerobic GNRs, but as this is an inflammatory condition rather than infection, and this has been an uncomplicated course, I anticipate she will do well off antiobiotics. ASSESSMENT: 1) Acute cholecystitis in , resolved 2) Leukocytosis w/o left shift, resolving 3) Afebrile 4) Hemodynamically stable 5) PCN allergy , not anaphylaxis 6) routine screen negative for HIV, chlamydia, syphilis, and viral hepatitis. PLAN: --d/c IV aztreonam D#2 --okay for discharge from ID perspective. Subjective Constitutional: Reports: no symptoms Respiratory: Reports: no symptoms Cardiovascular: Reports: no symptoms Gastrointestinal/Abdominal: Reports: no symptoms Skin: Reports: no symptoms Musculoskeletal: Reports: no symptoms Allergies: Coded Allergies: PENICILLINS (Verified Allergy, Unknown, 11/29/16) Subjective has been afebrile throughout. comfortable, tolerating diet, passing flatus, very anxious to go home. Objective Vital Signs Last 24 Hour Vital Signs Date Time Temp Pulse Resp B/P Pulse Ox O2 Delivery O2 Flow Rate FiO2 12/01/16 12:00 98.2 69 20 117/72 95 Room Air 12/01/16 08:00 97.7 69 20 116/69 96 Room Air 12/01/16 03:53 98.6 80 18 111/64 95 Room Air 11/30/16 23:33 98.2 72 16 113/73 94 Room Air 11/30/16 21:00 97.9 71 19 109/65 100 Room Air 11/30/16 16:00 97.7 67 20 112/74 98 Room Air Height (Feet): 5 Height (Inches): 5.00 Weight (Pounds): 230 Objective GEN: awake, alert, non toxic appearing HEENT: Mild pale conjunctiva. oral mucosa dry, pharynx w/o exudate or effusion. No icterus. Head normocephalic, neck supple. no conjunctival injection. NECK: No cervical LAD CHEST: Clear to auscultation bilaterally, poor inspiratory HEART: S1 and S2, no murmurs, no rubs. ABDOMEN: soft, non tender, non distended, normoactive bowel sounds, obese, uterine fundus palpated. no RUQ pain to palpation. no rebound, no guarding. EXTREMITIES: No cyanosis, no clubbing, no edema. NEUROLOGIC: Awake, alert, no focal neurologic motor deficits. : deferred LYMPH: no LAD RECTAL: deferred SKIN: no rash Laboratory Tests Test 11/30/16 22:30 12/01/16 09:25 Chlamydia trachomatis RNA Pending White Blood Count 11.2 K/UL (4.8-10.8) H Red Blood Count 4.52 M/UL (4.20-5.40) Hemoglobin 13.1 G/DL (12.0-16.0) Hematocrit 39.4 % (37.0-47.0) Mean Corpuscular Volume 87 FL (80-99) Mean Corpuscular Hemoglobin 29.1 PG (27.0-31.0) Mean Corpuscular Hemoglobin Concent 33.3 G/DL (32.0-36.0) Red Cell Distribution Width 13.3 % (11.6-14.8) Platelet Count 267 K/UL (150-450) Mean Platelet Volume 7.7 FL (6.5-10.1) Neutrophils (%) (Auto) 61.6 % (45.0-75.0) Lymphocytes (%) (Auto) 28.0 % (20.0-45.0) Monocytes (%) (Auto) 5.0 % (1.0-10.0) Eosinophils (%) (Auto) 4.5 % (0.0-3.0) H Basophils (%) (Auto) 1.0 % (0.0-2.0) Activated Partial Thromboplast Time 29 SEC (23-33) Sodium Level 137 mEQ/L (135-145) Potassium Level 4.1 mEQ/L (3.4-4.9) Chloride Level 105 mEQ/L (98-107) Carbon Dioxide Level 21 mEQ/L (20-30) Anion Gap 11 (5-15) Blood Urea Nitrogen 8 mg/dL (7-23) Creatinine 0.7 mg/dL (0.5-0.9) Estimat Glomerular Filtration Rate > 60 mL/min (>60) Glucose Level 94 mg/dL (74-106) Calcium Level 8.5 mg/dL (8.6-10.2) L Total Bilirubin 0.4 mg/dL (0.0-1.2) Aspartate Amino Transf (AST/SGOT) 11 U/L (5-40) Alanine Aminotransferase (ALT/SGPT) 8 U/L (3-33) Alkaline Phosphatase 73 U/L (35-104) Total Protein 6.8 g/dL (6.6-8.7) Albumin 3.5 g/dL (3.5-5.2) Globulin 3.3 g/dL Albumin/Globulin Ratio 1.0 (1.0-2.7) Amylase Level 59 U/L (10-110) Lipase 41 U/L (< 60) Current Medications Medications (Trade) Dose Ordered Sig/Indio Route PRN Reason Start Time Stop Time Status Last Admin Dose Admin Acetaminophen 650 mg 650 mg Q4H PRN ORAL Mild Pain/Temp > 100.5 11/30/16 08:45 12/30/16 08:44 11/30/16 10:58 Al Hydroxide/Mg Hydroxide (Mylanta II) 30 ml Q6H PRN ORAL dyspepsia 11/30/16 06:45 12/30/16 06:44 Aztreonam/Sodium Chloride (Azactam/Sodium Chloride) 50 ml @ 100 mls/hr EVERY 8 HOURS IVPB 11/30/16 08:00 12/07/16 07:59 12/01/16 05:20 Dextrose (Dextrose 50%) STAT PRN IV Hypoglycemia 11/30/16 06:45 12/30/16 06:44 Dextrose/Sodium Chloride (D5 0.45% NS) 1,000 ml @ 125 mls/hr Q8H IV 11/30/16 10:30 12/30/16 10:29 12/01/16 11:45 Diphenhydramine HCl (Benadryl) 25 mg Q6H PRN ORAL Itching/Pruritis 11/30/16 06:45 12/30/16 06:44 Heparin Sodium (Porcine) (Heparin 5000 units/ml) 5,000 units EVERY 12 HOURS SUBQ 11/30/16 09:00 12/30/16 08:59 Morphine Sulfate (Morphine Sulfate) 2 mg Q4H PRN IVP severe Pain (Pain Scale 7-10) 11/30/16 06:45 12/07/16 06:44 Nitroglycerin (Ntg) 0.4 mg Q5M X 3 DOSES PRN SL Prn Chest Pain 11/30/16 06:45 12/30/16 06:44 Ondansetron HCl (Zofran) 4 mg Q6H PRN IVP Nausea & Vomiting 11/30/16 06:45 12/30/16 06:44 11/30/16 22:39 Pantoprazole 40 mg 40 mg DAILY IVP 11/30/16 09:00 12/30/16 08:59 Polyethylene Glycol (Miralax) 17 gm HSPRN PRN ORAL Constipation 11/30/16 06:45 12/30/16 06:44 Jesus Lopez M.D. Dec 01, 2016 15:03
[2016-12-01] MEDS ORDERED: D5 1/2NS 1000ml IV ONE (15:23)
--- NOTE | 2016-12-01 15:46 | GI Progress Note ---
Assessment/Plan Problems: (1) Abdominal pain ICD Codes: R10.9 - Unspecified abdominal pain SNOMED: 47072363 (2) Cholelithiasis ICD Codes: K80.20 - Calculus of gallbladder without cholecystitis without obstruction SNOMED: 154300273 Status: doing well, stable Status Narrative Discussed with Dr. Knott. Assessment/Plan abdominal U/S reviewed >> Suspicion of cholelithiasis with positive sonographic Bruce's. Acute cholecystitis may be present. HGC positive surgical recs >> defer surgical procedures at this time, continue with medical management of acute cholecystitis clear from GI for discharge adv diet zofran prn pain mgmt ppi fu labs Subjective Subjective abdominal pain resolving wants to go home Objective Last 24 Hour Vital Signs Date Time Temp Pulse Resp B/P Pulse Ox O2 Delivery O2 Flow Rate FiO2 12/01/16 12:00 98.2 69 20 117/72 95 Room Air 12/01/16 08:00 97.7 69 20 116/69 96 Room Air 12/01/16 03:53 98.6 80 18 111/64 95 Room Air 11/30/16 23:33 98.2 72 16 113/73 94 Room Air 11/30/16 21:00 97.9 71 19 109/65 100 Room Air 11/30/16 16:00 97.7 67 20 112/74 98 Room Air Intake and Output 11/30/16 12/01/16 19:00 07:00 Intake Total 1250 ml Balance 1250 ml Intake IV Total 1250 ml # Voids 4 3 Laboratory Tests Test 11/30/16 22:30 12/01/16 09:25 Chlamydia trachomatis RNA Pending White Blood Count 11.2 K/UL (4.8-10.8) H Red Blood Count 4.52 M/UL (4.20-5.40) Hemoglobin 13.1 G/DL (12.0-16.0) Hematocrit 39.4 % (37.0-47.0) Mean Corpuscular Volume 87 FL (80-99) Mean Corpuscular Hemoglobin 29.1 PG (27.0-31.0) Mean Corpuscular Hemoglobin Concent 33.3 G/DL (32.0-36.0) Red Cell Distribution Width 13.3 % (11.6-14.8) Platelet Count 267 K/UL (150-450) Mean Platelet Volume 7.7 FL (6.5-10.1) Neutrophils (%) (Auto) 61.6 % (45.0-75.0) Lymphocytes (%) (Auto) 28.0 % (20.0-45.0) Monocytes (%) (Auto) 5.0 % (1.0-10.0) Eosinophils (%) (Auto) 4.5 % (0.0-3.0) H Basophils (%) (Auto) 1.0 % (0.0-2.0) Activated Partial Thromboplast Time 29 SEC (23-33) Sodium Level 137 mEQ/L (135-145) Potassium Level 4.1 mEQ/L (3.4-4.9) Chloride Level 105 mEQ/L (98-107) Carbon Dioxide Level 21 mEQ/L (20-30) Anion Gap 11 (5-15) Blood Urea Nitrogen 8 mg/dL (7-23) Creatinine 0.7 mg/dL (0.5-0.9) Estimat Glomerular Filtration Rate > 60 mL/min (>60) Glucose Level 94 mg/dL (74-106) Calcium Level 8.5 mg/dL (8.6-10.2) L Total Bilirubin 0.4 mg/dL (0.0-1.2) Aspartate Amino Transf (AST/SGOT) 11 U/L (5-40) Alanine Aminotransferase (ALT/SGPT) 8 U/L (3-33) Alkaline Phosphatase 73 U/L (35-104) Total Protein 6.8 g/dL (6.6-8.7) Albumin 3.5 g/dL (3.5-5.2) Globulin 3.3 g/dL Albumin/Globulin Ratio 1.0 (1.0-2.7) Amylase Level 59 U/L (10-110) Lipase 41 U/L (< 60) Height (Feet): 5 Height (Inches): 5.00 Weight (Pounds): 230 General Appearance: no apparent distress, alert Cardiovascular: normal rate Respiratory/Chest: normal breath sounds, no respiratory distress Abdominal Exam: normal bowel sounds, non tender, soft Extremities: normal range of motion Tracy Whipple N.P. Dec 01, 2016 15:46
--- NOTE | 2016-12-03 17:34 | Discharge Summary ---
Discharge Summary Hospital Course Date of Admission Nov 30, 2016 at 01:22 Date of Discharge Dec 01, 2016 at 15:24 Admitting Diagnosis cholecystitis HPI Radha Pride is a 36 year old female who was admitted on Nov 30, 2016 at 01:22 for Cholecystitis Hospital Course [id number] Discharge Discharge Disposition Patient was discharged to Home (01) Discharge Diagnoses: Yoli Nugent NP Dec 03, 2016 17:34
--- NOTE | 2016-12-03 22:01 | Discharge Summary 2 SIG ---
DATE OF ADMISSION: 11/30/2016 DATE OF DISCHARGE: 12/01/2016 CONSULTANTS: 1. Dominic Vargas M.D. 2. Butch Knott M.D. 3. Jesus Lopez M.D. BRIEF HOSPITAL COURSE: The patient is a 36-year-old female, with known cholelithiasis, walked in to ED complaining of right upper quadrant pain for two days. She had the same symptoms a few months ago where she went to [facility] ED and at that time, had negative sonogram, but with no follow up with GI. She presented to ED complaining of abdominal pain with no associated vomiting or diarrhea. Urine was positive. The patient was 8 weeks . She was attempted transfer to the hospital with [facility] department. However, the patient was not accepted. The patient was then admitted to medical floor for acute cholecystitis and . She was placed on NPO. Abdominal ultrasound showed cholelithiasis with acute cholecystitis. She was given intravenous aztreonam. She underwent evaluation by the surgery and advised to continue with medical management of acute cholecystitis. screening was done. The patient was negative for human immunodeficiency virus, syphilis, chlamydia and hepatitis. Abdominal pain resolved. Diet was advanced. She received 48 hours empiric intravenous antibiotic treatment with aztreonam. The patient was not systemically ill and did not present with ascending cholangitis. She was advised risk of having recurrence of symptoms during and was advised need to seek medical attention. Need to consider cholecystectomy. The patient stated that she will follow up with her OB Gynecology soon after discharge. Symptoms are inflammatory process more than infectious and no further need for antibiotic treatment. She was tolerating diet well and WBC down trended. The patient was then discharged home. FINAL DIAGNOSES: 1. Possible acute cholecystitis. 2. . 3. Likely biliary colic. 4. Cholelithiasis. DISPOSITION: The patient was discharged home. DISCHARGE MEDICATIONS: Refer to medication list. FOLLOWUP: Follow up with OB Gynecology as early as possible. Pam Fiore M.D. I have been assigned to dictate discharge summary on this account and I was not involved in the patient's management. Yoli Nugent N.P. DR: AZUCENA JOB#: [id number] CC: SARA
== END 2016-12-01 15:24 | disposition home or self-care (01) | DRG 566 ==
LOC: EMR 23:31 → UNDOADMIN 11-30 01:22 → 4E 11-30 01:22 → EDBEDREQ 11-30 01:32
DX: O99.611 Diseases of the digestive system complicating pregnancy, first trimester (principal); K80.00 Calculus of gallbladder with acute cholecystitis without obstruction; Z3A.08 8 weeks gestation of pregnancy; Z88.0 Allergy status to penicillin; D72.829 Elevated white blood cell count, unspecified
CPT/HCPCS: 36415; 76700; 80053; 81003; 81025; 82150; 83690; 85025; 85730; 86592; 86703; 86705; 86709; 86803; 87340; 87491; J2405; S0077

== ENCOUNTER 2018-07-27 22:06 | Emergency (ER) | payer MEDICAID ==
[~2018-07-27] VITALS: Ht 167.6 cm; Wt 113.4 kg
[~2018-07-27 22:06] MED LIST: NKM; REGLAN5 MG ORAL
--- NOTE | 2018-07-27 22:11 | NUR ---
ED Nurse Note: Patient presents with shortness of breath x 2 days. no history of asthma.
[2018-07-27] MEDS ORDERED: NKM (22:14)
--- NOTE | 2018-07-27 22:22 | Emergency Room Report ---
History of Present Illness General Chief Complaint: Dyspnea/Respdistress Source: Patient Present Illness HPI This is a 37-year-old female with no past medical history. No history of asthma. She presents with chief complaint of shortness of breath. Onset for last 2 days. Coughing congestion. Worse with exertion. Worse with inspiration. No nausea no vomiting. No fever chills. No sick contact. Allergies: Coded Allergies: PENICILLINS (Verified Allergy, Unknown, 11/29/16) Patient History Past Medical History: see triage record, old chart reviewed Past Surgical History: other Pertinent Family History: none Social History: Denies: smoking Last Menstrual Period: n/a Now: No Immunizations: other Reviewed Nursing Documentation: PMH: Agreed; PSxH: Agreed Nursing Documentation-PMH Past Medical History: No History, Except For Hx Cardiac Problems: No Hx Cancer: No Hx Gastrointestinal Problems: Yes - Gallstones Hx Neurological Problems: No Review of Systems Eye: Denies: eye pain, blurred vision ENT: Denies: ear pain, nose congestion, throat swelling Respiratory: Reports: cough, shortness of breath Cardiovascular: Denies: chest pain, palpitations Gastrointestinal: Denies: abdominal pain, diarrhea, nausea, vomiting Musculoskeletal: Denies: back pain, joint pain Skin: Denies: rash Neurological: Denies: headache, numbness Endocrine: Denies: increased thirst, increased urine Hematologic/Lymphatic: Denies: easy bruising All Other Systems: negative except mentioned in HPI Physical Exam Vital Signs Date Time Temp Pulse Resp B/P (MAP) Pulse Ox O2 Delivery O2 Flow Rate FiO2 07/27/18 22:11 98.4 100 24 126/75 89 Room Air vitals with hypoxia Sp02 EP Interpretation: reviewed, abnormal General Appearance: well appearing, alert, mild distress, obese Head: normocephalic, atraumatic Eyes: bilateral eye PERRL, bilateral eye EOMI ENT: hearing grossly normal, normal pharynx Neck: full range of motion, supple, no meningismus Respiratory: chest non-tender, decreased breath sounds, accessory muscle use, wheezing Cardiovascular #1: regular rate, rhythm, no murmur Gastrointestinal: normal bowel sounds, non tender, no mass, no organomegaly, no bruit, non-distended Musculoskeletal: back normal, gait/station normal, normal range of motion Psychiatric: mood/affect normal Skin: warm/dry Medical Decision Making Diagnostic Impression: Primary Impression: Asthma with exacerbation Qualified Codes: J45.901 - Unspecified asthma with (acute) exacerbation ER Course Patient with wheezing. No previous asthma diagnosis. It took several breathing treatments are for her to clear. Steroid also given as well as magnesium. Patient felt better now. This is probably a viral upper respiratory infection causing her wheezing. No evidence of ACS, PE, dissection to name a few. We'll discharge home. Chest X-Ray Diagnostic Results Chest X-Ray Diagnostic Results : Chest X-Ray Ordered: Yes # of Views/Limited/Complete: 1 View Indication: Shortness of Breath EP Interpretation: Yes Interpretation: no consolidation, no effusion, no pneumothorax, no acute cardiopulmonary disease Impression: No acute disease Electronically Signed by: Julio C Whipple MD Last Vital Signs Date Time Temp Pulse Resp B/P (MAP) Pulse Ox O2 Delivery O2 Flow Rate FiO2 07/27/18 22:11 98.4 100 24 126/75 89 Room Air Status: improved Disposition: HOME, SELF-CARE Condition: Stable Scripts Prednisone* (PREDNISONE*) 20 Mg Tablet 40 MG ORAL DAILY, #8 TAB Prov: Julio C Whipple MD 07/28/18 Albuterol Sulfate* (ALBUTEROL SULFATE MDI*) 8.5 Gm Hfa.aer.ad 2 PUFF INH Q4H PRN for cough/wheezing, #1 EA 0 Refills Prov: Julio C Whipple MD 07/28/18 Additional Instructions: Increase fluids. Follow-up with your doctor in 7 days. Return if worse. Julio C Whipple MD Jul 27, 2018 22:22
[2018-07-27 22:28] VITALS: BP 126/75
[2018-07-27] MEDS ORDERED: Albuterol ud Inhalation HHN ONE ×2 (22:30→23:15)
[2018-07-27] MEDS ORDERED: Ipratropium 0.02% Inh Soln 2.5ml UD HHN ONE (22:30)
[2018-07-27 22:34] VITALS: BP 126/75
--- NOTE | 2018-07-27 22:34 | NUR ---
ED Nurse Note: Patient undergoing breathing treatment at this time.
--- NOTE | 2018-07-27 22:39 | NUR ---
ED Nurse Note: Patient currently received breathing treatment, RT at bedside.
--- NOTE | 2018-07-27 22:55 | NUR ---
ED Nurse Note: Patient resting comfortably, expressed little relief and ease of breathing, vital signs recorded.
[2018-07-27 22:56] VITALS: BP 126/75
--- NOTE | 2018-07-27 23:05 | NUR ---
ED Nurse Note: Patient is currently vomitting, informed ERMD, will carry out orders.
[2018-07-27 23:51] LABS: BASOPHILS % (AUTO) 0.5 % (0.0-2.0); EOSINOPHILS % (AUTO) 3.5 % (0.0-3.0); HEMATOCRIT 39.9 % (37.0-47.0); HEMOGLOBIN 13.5 G/DL (12.0-16.0); LYMPHOCYTES % (AUTO) 10.3 % (20.0-45.0); MEAN CORPUSCULAR VOLUME 81 FL (80-99); MONOCYTES % (AUTO) 5.1 % (1.0-10.0); NEUTROPHILS % (AUTO) 80.5 % (45.0-75.0); PLATELET COUNT 270 K/UL (150-450); RED BLOOD COUNT 4.95 M/UL (4.20-5.40); RED CELL DISTRIBUTION WIDTH 12.6 % (11.6-14.8); WHITE BLOOD COUNT 15.4 K/UL (4.8-10.8)
[2018-07-27 23:59] LABS: ANION GAP 12 mmol/L (5-15); BLOOD UREA NITROGEN 11 mg/dL (7-18); CALCIUM 8.9 MG/DL (8.5-10.1); CARBON DIOXIDE 25 MMOL/L (21-32); CHLORIDE 104 MMOL/L (98-107); POTASSIUM 3.5 MMOL/L (3.5-5.1); SODIUM 141 MMOL/L (136-145)
--- NOTE | 2018-07-28 00:10 | NUR ---
Patient tolerating IV medication well, vital signs stable.
[2018-07-28] MEDS ORDERED: Albuterol ud Inhalation HHN ONE ×2 (00:15→00:45)
[2018-07-28 00:23] VITALS: BP 104/54
[2018-07-28] MEDS ORDERED: PREDNISONE20 MG ORAL (01:38)
[2018-07-28] MEDS ORDERED: ALBUTEROL SULF8.5 GM INH (01:38)
--- NOTE | 2018-07-28 01:58 | NUR ---
ED Nurse Note: Patient cleared for discharge, vital signs stable, no s/s of acute distress, A&Ox4, ambulatory with steady gait. patient IV removed, ID band removed. patient verbalized understanding of discharge instructions. Patient departed with all belongings accompanied by her .
[2018-07-28 01:59] VITALS: BP 104/54
--- NOTE | 2018-07-28 10:11 | Diagnostic Imaging Report ---
Indication: Shortness of breath Technique: One view of the chest Comparison: none Findings: Lungs and pleural spaces are clear. Heart size is normal Impression: No acute process
== END 2018-07-28 01:45 | disposition home or self-care (01) ==
LOC: EMR 22:28
DX: J45.901 Unspecified asthma with (acute) exacerbation (principal); Z88.0 Allergy status to penicillin
CPT/HCPCS: 36415; 71045; 80048; 85025; 94640; 94664; 96365; 96366; 99284; J7512

== ENCOUNTER 2019-06-22 19:51 | Inpatient (IN) | payer MEDICAID ==
[~2019-06-22] VITALS: Ht 160 cm; Wt 107.5 kg
[~2019-06-22 19:51] MED LIST changes: +ALBUTEROL SULF8.5 GM INH; +PREDNISONE20 MG ORAL
[2019-06-22 20:12] VITALS: BP 119/81
--- NOTE | 2019-06-22 20:15 | NUR ---
ER Nurse Note: Pt walked in c/o difficulty breathing since 06/21. Pt stated hx of shantell and takes albuterol. Pt stated she took her albuterol inhaler at 1600 but not effective. Expectory wheezes heard. Pt put on 2L NC; satting at 92% O2. Pt has a cough, no mucus. Will continue to montior.
[2019-06-22] MEDS ORDERED: Albuterol ud Inhalation HHN ONE ×2 (20:30→20:45)
--- NOTE | 2019-06-22 21:28 | NUR ---
ER Nurse Note: Second breathing treatment given. Pt stable; stated "breathing a getting better". Pt still has cough. All safety measures met; will continue to montior.
[2019-06-22 21:29] VITALS: BP 124/78
[2019-06-22 22:50] VITALS: BP 126/82
[2019-06-22 22:51] LABS: ANION GAP 13 mmol/L (5-15); BLOOD UREA NITROGEN 8 mg/dL (7-18); CARBON DIOXIDE 25 MMOL/L (21-32); CHLORIDE 106 MMOL/L (98-107); EOSINOPHILS % (AUTO) 3.4 % (0.0-3.0); HEMATOCRIT 39.8 % (37.0-47.0); HEMOGLOBIN 12.7 G/DL (12.0-16.0); LYMPHOCYTES % (AUTO) 9.7 % (20.0-45.0); MEAN CORPUSCULAR VOLUME 79 FL (80-99); MONOCYTES % (AUTO) 5.2 % (1.0-10.0); NEUTROPHILS % (AUTO) 80.6 % (45.0-75.0); PLATELET COUNT 283 K/UL (150-450); POTASSIUM 3.2 MMOL/L (3.5-5.1); RED BLOOD COUNT 5.03 M/UL (4.20-5.40); RED CELL DISTRIBUTION WIDTH 15.5 % (11.6-14.8); SODIUM 143 MMOL/L (136-145); WHITE BLOOD COUNT 17.6 K/UL (4.8-10.8)
--- NOTE | 2019-06-22 22:51 | NUR ---
ER Nurse Note: IV stated on RT AC; blood drawn and sent to lab. NS infusing. Pt on 4L NC; O2 sat >95%. Pt HR 100. Pt resting. Pt stated she was cold after breathing treatments; explained to pt about the side effects. Provided all safety measures met; will continue to risa.
[2019-06-22 22:56] LABS: ALANINE AMINOTRANSFERASE 41 U/L (12-78); ALBUMIN 3.5 G/DL (3.4-5.0); ALBUMIN/GLOBULIN RATIO 0.8 (1.0-2.7); ALKALINE PHOSPHATASE 157 U/L (46-116); ASPARTATE AMINO TRANSFERASE 38 U/L (15-37); BILIRUBIN,TOTAL 0.4 MG/DL (0.2-1.0)
--- NOTE | 2019-06-22 23:03 | Emergency Room Report ---
History of Present Illness General Chief Complaint: Dyspnea/Respdistress Source: Patient Present Illness HPI This patient has a history of asthma. She states that she has had shortness of breath and wheezing for the past 2 days. She denies recent illness. She denies cough or congestion. She denies fever chills. She denies sore throat. She denies headache or neck pain. She has no other complaints. Allergies: Coded Allergies: PENICILLINS (Verified Allergy, Unknown, 11/29/16) Patient History Past Medical History: see triage record, asthma Social History: Denies: smoking, alcohol use, drug use Last Menstrual Period: 06/05/2019 Reviewed Nursing Documentation: PMH: Agreed; PSxH: Agreed Nursing Documentation-PMH Hx Cardiac Problems: No Hx Cancer: No Hx Gastrointestinal Problems: Yes - Gallstones Hx Neurological Problems: No Review of Systems All Other Systems: negative except mentioned in HPI Physical Exam Vital Signs Date Time Temp Pulse Resp B/P (MAP) Pulse Ox O2 Delivery O2 Flow Rate FiO2 06/22/19 19:59 98.2 96 20 119/81 (94) 89 Room Air 06/22/19 20:31 2.0 28 Sp02 EP Interpretation: reviewed, normal General Appearance: no apparent distress, alert, GCS 15, non-toxic Head: normocephalic, atraumatic Eyes: bilateral eye normal inspection, bilateral eye PERRL ENT: hearing grossly normal, normal pharynx, no angioedema, normal voice Neck: full range of motion, supple/symm/no masses Respiratory: chest non-tender, respiratory distress, decreased breath sounds, wheezing, expiration Cardiovascular #1: regular rate, rhythm, no edema Gastrointestinal: normal bowel sounds, non tender, soft, non-distended, no guarding, no rebound Rectal: deferred Genitourinary: normal inspection, no CVA tenderness Musculoskeletal: back normal, normal range of motion, gait/station normal, non- tender Neurologic: alert, motor strength/tone normal, oriented x3, sensory intact, responsive, speech normal Psychiatric: judgement/insight normal, memory normal, mood/affect normal, no suicidal/homicidal ideation Skin: no rash, normal color Medical Decision Making Diagnostic Impression: Primary Impression: Asthma exacerbation Additional Impression: Hypoxemia ER Course Patient presented with an asthma exacerbation. The patient was dyspneic and with mild respiratory distress. She was also hypoxemic with oxygen saturations around 90. The patient did improve with 10 mg of albuterol. However, she continued to remain wheezing and short of breath and her oxygen saturations were in the low 90s persistently. I felt that this patient should be admitted overnight for pulmonary hygiene, monitoring and further breathing treatments. I did not feel that this patient was safe to go home given the persistence of her wheezing and hypoxemia. Laboratory Tests Test 06/22/19 22:32 White Blood Count 17.6 K/UL (4.8-10.8) H Red Blood Count 5.03 M/UL (4.20-5.40) Hemoglobin 12.7 G/DL (12.0-16.0) Hematocrit 39.8 % (37.0-47.0) Mean Corpuscular Volume 79 FL (80-99) L Mean Corpuscular Hemoglobin 25.3 PG (27.0-31.0) L Mean Corpuscular Hemoglobin Concent 31.9 G/DL (32.0-36.0) L Red Cell Distribution Width 15.5 % (11.6-14.8) H Platelet Count 283 K/UL (150-450) Mean Platelet Volume 7.9 FL (6.5-10.1) Neutrophils (%) (Auto) 80.6 % (45.0-75.0) H Lymphocytes (%) (Auto) 9.7 % (20.0-45.0) L Monocytes (%) (Auto) 5.2 % (1.0-10.0) Eosinophils (%) (Auto) 3.4 % (0.0-3.0) H Basophils (%) (Auto) 1.0 % (0.0-2.0) Sodium Level 143 MMOL/L (136-145) Potassium Level 3.2 MMOL/L (3.5-5.1) L Chloride Level 106 MMOL/L (98-107) Carbon Dioxide Level 25 MMOL/L (21-32) Anion Gap 13 mmol/L (5-15) Blood Urea Nitrogen 8 mg/dL (7-18) Creatinine 1.0 MG/DL (0.55-1.30) Estimate Glomerular Filtration Rate > 60 mL/min (>60) Glucose Level 161 MG/DL (74-106) H Calcium Level 9.0 MG/DL (8.5-10.1) Total Bilirubin 0.4 MG/DL (0.2-1.0) Aspartate Amino Transferase (AST) 38 U/L (15-37) H Alanine Aminotransferase (ALT) 41 U/L (12-78) Alkaline Phosphatase 157 U/L (46-116) H Total Protein 7.8 G/DL (6.4-8.2) Albumin 3.5 G/DL (3.4-5.0) Globulin 4.3 g/dL Albumin/Globulin Ratio 0.8 (1.0-2.7) L Chest X-Ray Diagnostic Results Chest X-Ray Diagnostic Results : Chest X-Ray Ordered: Yes # of Views/Limited/Complete: 1 View Indication: Shortness of Breath EP Interpretation: Yes Interpretation: other - ? RML opacity vs nml Impression: Other - ?PNA Last Vital Signs Date Time Temp Pulse Resp B/P (MAP) Pulse Ox O2 Delivery O2 Flow Rate FiO2 06/22/19 22:50 98.6 100 24 126/82 99 Nasal Cannula 4.0 06/22/19 21:29 28 Disposition: ADMITTED INPATIENT Condition: Serious Referrals: NOT CHOSEN IPA/,REFERRING (PCP) Carey Lee DO Jun 22, 2019 23:03
[2019-06-22] MEDS ORDERED: Azithromycin 250mg tab ORAL ONE (23:15)
--- NOTE | 2019-06-22 23:24 | NUR ---
ER Nurse Note: Report given to NANCY Peck for continuty of care. All orders completed per ERMD orders. Pt on 4L NC, satting >95% O2. Pt infusing fluids via RT AC. All belongings taken.
--- NOTE | 2019-06-22 23:30 | NUR ---
ER Nurse Note: Pt transfered at 2330. All belongings taken with pt.
[2019-06-22] MEDS ORDERED: Nitroglycerin Subl 0.4mg tab SL PRN (23:45)
[2019-06-22] MEDS ORDERED: LORazepam Inj 2mg/ml 1ml IV PRN (23:45)
[2019-06-22] MEDS ORDERED: Promethazine/Codeine 5ml UD ORAL PRN (23:45)
[2019-06-22] MEDS ORDERED: Albuterol/Ipratropium 3ml neb HHN PRN (23:45)
[2019-06-22 23:50] VITALS: BP 126/78
--- NOTE | 2019-06-22 23:50 | NUR ---
NURSE NOTES: Received report from NANCY Villanueva. Patient was transferred from ED to telemetry via gurney accompanied by 1 staff member, without any incident. Patient transfer to hospital bed via ambulation with assistance. A/Ox4. Primarily Mal[place]ian speaking. Denies pain at this time. No signs of acute distress noted. Placed tele box on ST, on the monitor, 102bpm. Checked IV site and flushed. No erythema, bleeding or infiltration noted. Belongings list checked with transferring RN. Body assessment done without any skin issues. Patient admits that she has money in her pants. Charge nurse made aware. Counted money $10x1, $5x8, $1x2 with charge nurse. Advised patient to placed money to hospital safe. QUALITY CONTROL EXPERT translating to patient. However, patient declined and wants her money by her side. Patient is aware that she is responsible for any loss of her valuables. Charge nurse and historic sites supervisor made aware. Vital signs taken. Patient is in stable condition. Dr. Fiore placed in admitting orders. Noted and carried out.
--- NOTE | 2019-06-23 02:00 | NUR ---
NURSE NOTES: Resting throughout the night. No significant change of condition noted. Will continue to monitor.
[2019-06-23] MEDS: Solu-MEDROL 125mg Inj IV SCH ×2 (03:41→09:53)
[2019-06-23 04:00] VITALS: BP 138/88
--- NOTE | 2019-06-23 07:15 | NUR ---
HAND-OFF: Report given to NANCY Doyle. Plan of care endorsed.
[2019-06-23 08:00] VITALS: BP 136/83
--- NOTE | 2019-06-23 08:29 | NUR ---
NURSE NOTES: Patient AOx4 with no complaints at this time. RR even and unlabored on 2L NC. No s/sx of distress.Pt eating breakfast in bed. Side rails upx2, call light within reach, bed low and locked. Will continue to monitor.
[2019-06-23] MEDS ORDERED: Heparin 5000 units/ml inj SUBQ SCH (09:00)
[2019-06-23] MEDS ORDERED: Theophylline ER 100mg ORAL SCH (09:00)
--- NOTE | 2019-06-23 11:16 | Diagnostic Imaging Report ---
Indication: Shortness of breath Technique: One view of the chest Comparison: 07/27/2018 Findings: There is infiltrate in the right perihilar region. The lungs and pleural spaces are otherwise clear. The heart size is normal Impression: Right perihilar infiltrate, likely focal pneumonia. Correlate with clinical findings
[2019-06-23 12:00] VITALS: BP 149/91
[2019-06-23] MEDS ORDERED: MEDROL DOSEPAK4 MG ORAL (14:02)
[2019-06-23] MEDS ORDERED: BACTRIM DS TAB1 EAC1 ORAL (14:03)
--- NOTE | 2019-06-23 14:10 | History and Physical ---
History of Present Illness General Reason for Hospitalization: Dyspnea/Respdistress Present Illness Allergies: Coded Allergies: PENICILLINS (Verified Allergy, Unknown, 11/29/16) Medication History Scheduled Methylprednisolone (Methylprednisolone*), 4 MG ORAL DIRECTED Prednisone* (Prednisone*), 40 MG ORAL DAILY Trimethoprim/Sulfamethoxazole 160/800* (Bactrim Ds Tablet*), 1 TAB ORAL TWICE A DAY Scheduled PRN Albuterol Sulfate* (Albuterol Sulfate Mdi*), 2 PUFF INH Q4H PRN for cough/ wheezing Patient History Healthcare decision maker Resuscitation status Full Code Advanced Directive on File Past Medical/Surgical History Past Medical/Surgical History: (1) Asthma Review of Systems All Other Systems: negative except mentioned in HPI Physical Exam General Appearance: WD/WN, no apparent distress Lines, tubes and drains: peripheral, central line HEENT: normocephalic, atraumatic Neck: non-tender, normal alignment Respiratory/Chest: chest wall non-tender, lungs clear Cardiovascular/Chest: normal peripheral pulses, normal rate Abdomen: normal bowel sounds Genitourinary/Rectal: normal genital exam Last 24 Hour Vital Signs Date Time Temp Pulse Resp B/P (MAP) Pulse Ox O2 Delivery O2 Flow Rate FiO2 06/23/19 12:00 99.1 85 20 149/91 (110) 95 06/23/19 08:55 Nasal Cannula 4.0 Nasal Cannula 4.0 06/23/19 08:13 107 16 92 Room Air 21 06/23/19 08:00 98.2 98 20 136/83 (100) 95 06/23/19 07:56 105 06/23/19 04:00 99 06/23/19 04:00 4.0 06/23/19 04:00 98.1 99 19 138/88 (105) 95 06/23/19 01:07 Nasal Cannula 4.0 06/22/19 23:50 104 06/22/19 23:50 98.6 105 18 126/78 (94) 95 06/22/19 23:30 98.6 100 24 126/82 99 Nasal Cannula 4.0 28 06/22/19 22:50 98.6 100 24 126/82 99 Nasal Cannula 4.0 06/22/19 21:29 98.2 94 24 124/78 98 Nasal Cannula 2.0 28 06/22/19 21:07 114 28 98 Nasal Cannula 2.0 28 104 19 91 06/22/19 20:31 104 26 98 Nasal Cannula 2.0 28 94 26 94 06/22/19 20:12 96 20 Room Air 06/22/19 20:12 98.2 82 20 119/81 89 Room Air 06/22/19 19:59 98.2 96 20 119/81 (94) 89 Room Air Intake and Output 06/22/19 06/23/19 19:00 07:00 Intake Total 2180 ml Balance 2180 ml Intake Oral 180 ml IV Total 2000 ml Laboratory Tests Test 06/22/19 22:32 White Blood Count 17.6 K/UL (4.8-10.8) H Red Blood Count 5.03 M/UL (4.20-5.40) Hemoglobin 12.7 G/DL (12.0-16.0) Hematocrit 39.8 % (37.0-47.0) Mean Corpuscular Volume 79 FL (80-99) L Mean Corpuscular Hemoglobin 25.3 PG (27.0-31.0) L Mean Corpuscular Hemoglobin Concent 31.9 G/DL (32.0-36.0) L Red Cell Distribution Width 15.5 % (11.6-14.8) H Platelet Count 283 K/UL (150-450) Mean Platelet Volume 7.9 FL (6.5-10.1) Neutrophils (%) (Auto) 80.6 % (45.0-75.0) H Lymphocytes (%) (Auto) 9.7 % (20.0-45.0) L Monocytes (%) (Auto) 5.2 % (1.0-10.0) Eosinophils (%) (Auto) 3.4 % (0.0-3.0) H Basophils (%) (Auto) 1.0 % (0.0-2.0) Sodium Level 143 MMOL/L (136-145) Potassium Level 3.2 MMOL/L (3.5-5.1) L Chloride Level 106 MMOL/L (98-107) Carbon Dioxide Level 25 MMOL/L (21-32) Anion Gap 13 mmol/L (5-15) Blood Urea Nitrogen 8 mg/dL (7-18) Creatinine 1.0 MG/DL (0.55-1.30) Estimat Glomerular Filtration Rate > 60 mL/min (>60) Glucose Level 161 MG/DL (74-106) H Calcium Level 9.0 MG/DL (8.5-10.1) Total Bilirubin 0.4 MG/DL (0.2-1.0) Aspartate Amino Transf (AST/SGOT) 38 U/L (15-37) H Alanine Aminotransferase (ALT/SGPT) 41 U/L (12-78) Alkaline Phosphatase 157 U/L (46-116) H Total Protein 7.8 G/DL (6.4-8.2) Albumin 3.5 G/DL (3.4-5.0) Globulin 4.3 g/dL Albumin/Globulin Ratio 0.8 (1.0-2.7) L Height (Feet): 5 Height (Inches): 3.00 Weight (Pounds): 237 Medications Current Medications Medications (Trade) Dose Ordered Sig/[place] Route PRN Reason Start Time Stop Time Status Last Admin Dose Admin Acetaminophen (Tylenol) 650 mg Q6H PRN ORAL Prn Headache/Temp > 101 06/23/19 08:00 07/23/19 07:59 Albuterol/ Ipratropium (Albuterol/ Ipratropium) 3 ml EVERY 4 HOURS PRN HHN dyspnea 06/22/19 23:45 06/27/19 23:44 Dextrose (Dextrose 50%) 25 ml Q30M PRN IV Hypoglycemia 06/22/19 23:45 07/22/19 23:44 Dextrose (Dextrose 50%) 50 ml Q30M PRN IV Hypoglycemia 06/22/19 23:45 07/22/19 23:44 Heparin Sodium (Porcine) (Heparin 5000 units/ml) 5,000 units EVERY 12 HOURS SUBQ 06/23/19 09:00 07/23/19 08:59 06/23/19 10:01 Lorazepam (Ativan 2mg/ml 1ml) 0.5 mg Q4H PRN IV For Anxiety 06/22/19 23:45 06/29/19 23:44 Methylprednisolone Sodium Succinate (Solu-MEDROL) 60 mg Q6H IV 06/23/19 03:00 07/23/19 02:59 06/23/19 09:53 Nitroglycerin (Ntg) 0.4 mg Q5M X 3 DOSES PRN SL Prn Chest Pain 06/22/19 23:45 07/22/19 23:44 Ondansetron HCl (Zofran) 4 mg Q6H PRN IVP Nausea & Vomiting 06/22/19 23:45 07/22/19 23:44 Promethazine HCl/ Codeine (Phenergan with Codeine) 5 ml EVERY 6 HOURS PRN ORAL cough 06/22/19 23:45 07/22/19 23:44 Temazepam (Restoril) 15 mg HSPRN PRN ORAL Insomnia 06/22/19 23:45 06/29/19 23:44 Theophylline (Sathya-Dur) 100 mg EVERY 12 HOURS ORAL 06/23/19 09:00 07/23/19 08:59 06/23/19 09:54 Assessment/Plan Problem List: (1) Asthma exacerbation ICD Codes: J45.901 - Unspecified asthma with (acute) exacerbation SNOMED: 810059536 Assessment/Plan: pt is feeling better already, wants to go home. She has 4 young children. will dc with oral abx and steroids taper. Pam Fiore MD Jun 23, 2019 14:09
--- NOTE | 2019-06-23 14:20 | NUR ---
CASE MANAGEMENT:INITIAL REVIEW 38 YR OLD FEMALE FROM HOME CC;DYSPNEA. RESPIRATORY DISTRESS. SI;ASTHMA EXACERBATION. HYPOXEMIA. 98.6 114 28 126/82 91% 2L NC FIOW @ 28% WBC 17.6 K+ 3.2 CXR = Right perihilar infiltrate, likely focal pneumonia. IS;ALBUTEROL HHN ONCE PREDNISONE PO ONCE IVF NS BOLUS ADMITTED TO TELEMETRY TELE STATUS DCP;FROM HOME
[2019-06-23] MEDS ORDERED: ALBUTEROL SULF8.5 GM INH (15:47)
--- NOTE | 2019-06-25 08:42 | Discharge Summary ---
Discharge Summary Discharge Summary _ DATE OF ADMISSION: 06/22/2019 DATE OF DISCHARGE: 06/23/2019 ADMITTING MD: Dr. Jeff Blank DISCHARGED BY: Dr. Pam Fiore CONSULTANTS: Dr. Pam Fiore BRIEF HOSPITAL COURSE: Patient is a 38-year-old female, with history of asthma presented to ED with complaints of shortness of breath and wheezing for the past 3 days. She denied any recent illness. Denied cough and congestion. Denied fever or chills. Denied sore throat. Denied headache or neck pain. Upon evaluation at ED, she was saturating 89% on room air. She was given nebulizer treatment. She improved however remained wheezing and short of breath. O2 saturation in the low 90% persistently. Blood work showed elevated white count with neutrophil predominance. Hemoglobin and hematocrit were stable. Potassium 3.2. Liver kidney function normal. Chest x-ray showed right perihilar infiltrate, likely focal pneumonia. She was given azithromycin. Due to lack of improvement in ED management, patient was admitted. Patient was admitted to telemetry. She was continued on IV Solu-Medrol. She was given antitussives. She was started on theophylline. She was continued on nebulizer treatments. The following day, patient was feeling better. Patient wants to go home. She was discharged with oral antibiotics and tapering doses of po steroids. FINAL DIAGNOSES: Acute asthma exacerbation DISPOSITION: Patient was discharged home. DISCHARGE MEDICATIONS: Refer to Discharge Medication List. Continue Bactrim for 5 days. DISCHARGE INSTRUCTIONS: Follow-up in a week. I have been assigned to complete a discharge summary on this account, I was not involved with the patient's management.--MC Tamayo Jacqueline Robles NP Jun 25, 2019 08:42
== END 2019-06-23 16:02 | disposition home or self-care (01) | DRG 141 ==
LOC: EMR 20:50 → 2E 22:19 → EDBEDREQ 23:06
DX: J45.901 Unspecified asthma with (acute) exacerbation (principal); Z88.0 Allergy status to penicillin
CPT/HCPCS: 36415; 71045; 80053; 85025; 93005; 94664; 96360; 99285; J7030